=== PATIENT | female | born 1965 | race Caucasian/White ===

== ENCOUNTER 2020-01-07 17:01 | Emergency (ER) | payer OTHER, SELFPAY ==
[2020-01-07 17:15] VITALS: BP 133/62; PULSE 74; RESP 18; TEMP 37.2; O2SAT 100
--- NOTE | 2020-01-07 17:32 | ED.GENADULT ---
HPI - General Adult General Chief complaint: Skin/Abscess/Foreign Body Stated complaint: animal bite Time Seen by Provider: 01/07/20 17:32 Source: patient Mode of arrival: ambulatory Limitations: no limitations History of Present Illness HPI narrative: 54-year-old female patient presents to the [facility] with complaints of an animal bite to the right forearm. Patient states that she recently has about a 7-month-old kitten that did bite her last night. Patient states that the kitten has not had any shots that she is aware of. Patient states that she is concerned about possible rabies. Patient denies history of diabetes or being immune compromised. Patient states that she did wash it with some soap and water last night and covered it with a wet towel. Denies taking anything for pain. Patient states her last tetanus shot was about 3 years ago. Patient states she does have a little bit of joint pain to the right thumb. Related Data Home Medications Medication Instructions Recorded Confirmed lorazepam [Ativan] 0.5 mg PO BID 01/07/20 01/07/20 Allergies Allergy/AdvReac Type Severity Reaction Status Date / Time guaifenesin AdvReac Intermediate Palpitation Verified 01/07/20 17:25 s Review of Systems Review of Systems: Narrative: CONSTITUTIONAL: Denies fever, chills, or sweats. EYES: Denies visual changes, redness, or discharge. ENT: Denies rhinorrhea, congestion, sore throat, or otalgia. CARDIOVASCULAR: Denies chest pain, palpitations, or edema. RESPIRATORY: Denies cough or dyspnea. GASTROINTESTINAL: Denies abdominal pain, nausea, vomiting, or diarrhea. GENITOURINARY: Denies dysuria or hematuria. SKIN: Denies rash or itching. Positive animal bite to right forearm MUSCULOSKELETAL: Denies back pain, joint pain, or myalgia. NEUROLOGIC: Denies headache, numbness, or weakness. PSYCHIATRIC: Denies anxiety or depression. PMFSH Social History Social History Gender identity (if verbalized by the patient): Female Comments At the time of my signature I agree with nursing past medical history, surgical, social, and family history. There is no relevant family history pertinent to the presenting complaint. Exam Narrative: Exam Narrative: GENERAL: Well-appearing, well-nourished, and in no acute distress. HEAD: Normocephalic, atraumatic. EYES: PERRLA and EOMI. ENT: Nares clear, no rhinorrhea or epistaxis. Mucous membranes moist. NECK: Supple. No lymphadenopathy CHEST: Clear to auscultation. No respiratory distress. HEART: Regular rate and rhythm. No murmur heard. Normal peripheral pulses. ABDOMEN: Soft, nontender, nondistended, normal active bowel sounds. EXTREMITIES: Normal range of motion. No edema. SKIN: Warm, dry, no rash. Patient has 2 small puncture wounds noted to the posterior side of the right forearm. There is no discharge noted. No redness or surrounding swelling. No warmth to the touch noted at this time. NEURO: No focal deficits. Alert and oriented x3. Course Vital Signs Vital signs: Vital Signs Temperature 37.2 C 01/07/20 17:15 Pulse Rate 74 01/07/20 17:15 Respiratory Rate 18 01/07/20 17:15 Blood Pressure 133/62 01/07/20 17:15 Pulse Oximetry 100 01/07/20 17:15 Temperature 37.2 C 01/07/20 17:15 Pulse Rate 74 01/07/20 17:15 Respiratory Rate 18 01/07/20 17:15 Blood Pressure 133/62 01/07/20 17:15 Pulse Oximetry 100 01/07/20 17:15 Vital signs reviewed. The patient has been informed that they may have pre-hypertension or Hypertension based on a BP reading in the department. I recommend that the patient call the primary care provider listed on their discharge instructions or a physician of their choice this week to arrange follow up for further evaluation of possible pre-hypertension or Hypertension Medical Decision Making Differential Diagnosis Differential Diagnosis: Differential diagnosis: Abscess, cellulitis, hidr
== END 2020-01-07 17:53 | disposition home or self-care (01) ==
PROVIDERS: Emergency Provider Nurse Practitioner Family
DX: S51.831A Puncture wound without foreign body of right forearm, initial encounter (principal); W55.01XA Bitten by cat, initial encounter; G35 Multiple sclerosis
CPT/HCPCS: 99213; G0463

== ENCOUNTER 2020-06-13 11:09 | Emergency (ER) | payer OTHER, SELFPAY ==
[2020-06-13 11:21] VITALS: BP 131/54; PULSE 79; RESP 16; TEMP 37.2; O2SAT 99
--- NOTE | 2020-06-13 11:35 | ED.EAR ---
HPI - Ear Problem General Chief complaint: Ear Stated complaint: (R) ear pain Time Seen by Provider: 06/13/20 11:27 Source: patient and RN notes reviewed Mode of arrival: ambulatory Limitations: no limitations History of Present Illness HPI Narrative: Patient presents today with a 2-day history of right ear pain and full feeling. She also reports some drainage from her right ear. She does have history of seasonal allergies for which she takes Piper. She has been taking Tylenol without relief. Currently rates her pain 05/06. MD Complaint: ear pain Related Data Home Medications Medication Instructions Recorded Confirmed lorazepam [Ativan] 0.5 mg PO BID 06/13/20 06/13/20 Allergies Allergy/AdvReac Type Severity Reaction Status Date / Time guaifenesin AdvReac Intermediate Palpitation Verified 06/13/20 11:29 s Review of Systems Review of Systems: Narrative: CONSTITUTIONAL: Denies body aches, fever, chills, or sweats. EYES: Denies visual changes, redness, or discharge. ENT: Denies rhinorrhea, congestion, sore throat. + Right ear pain CARDIOVASCULAR: Denies chest pain, palpitations, or edema. RESPIRATORY: Denies cough or dyspnea. GASTROINTESTINAL: Denies abdominal pain, nausea, vomiting, or diarrhea. GENITOURINARY: Denies dysuria or hematuria. SKIN: Denies rash, itching, or wounds. MUSCULOSKELETAL: Denies back pain, joint pain, or myalgia. NEUROLOGIC: Denies headache, numbness, tingling, or weakness. PSYCH: Denies depression or anxiety. [facility] Social History Social History Gender identity (if verbalized by the patient): Female Comments At time of signature, I have reviewed and agree with nursing past medical, surgical, social and family history unless otherwise noted. Please see nursing chart for further information. There is no relevant family history pertinent to the presenting complaint Exam Narrative: Exam Narrative: GENERAL: Well-appearing, well-nourished, and in no acute distress. HEAD: Normocephalic, atraumatic. EYES: EOMI. No redness or drainage. Conjunctivae normal. ENT: Mucous membranes pink and moist. Nares clear. No rhinorrhea. Small amount of clear fluid behind either TM without evidence of infection. Throat normal. Uvula midline. NECK: Normal AROM. Supple. No lymphadenopathy. CHEST: No respiratory distress. EXTREMITIES: Normal range of motion. No edema. SKIN: Warm, dry, no rash. Capillary refill normal. Normal skin turgor. NEURO: No focal deficits. Alert and oriented x3. Gait steady. PSYCH: Normal affect. No signs of depression or anxiety. Course Vital Signs Vital signs: Vital Signs Temperature 99.0 F 06/13/20 11:21 Pulse Rate 79 06/13/20 11:21 Respiratory Rate 16 06/13/20 11:21 Blood Pressure 131/54 L 06/13/20 11:21 Pulse Oximetry 99 06/13/20 11:21 Temperature 99.0 F 06/13/20 11:21 Pulse Rate 79 06/13/20 11:21 Respiratory Rate 16 06/13/20 11:21 Blood Pressure 131/54 L 06/13/20 11:21 Pulse Oximetry 99 06/13/20 11:21 Reviewed. Pt has been instructed to follow up with her PCP regarding her elevated blood pressure today. Medical Decision Making Differential Diagnosis Differential Diagnosis: Otitis media, otitis externa, ruptured TM, serous otitis, eustachian tube dysfunction, cerumen impaction Vital Signs Vital Signs: Vital Signs Temperature 99.0 F 06/13/20 11:21 Pulse Rate 79 06/13/20 11:21 Respiratory Rate 16 06/13/20 11:21 Blood Pressure 131/54 L 06/13/20 11:21 Pulse Oximetry 99 06/13/20 11:21 Temperature 99.0 F 06/13/20 11:21 Pulse Rate 79 06/13/20 11:21 Respiratory Rate 16 06/13/20 11:21 Blood Pressure 131/54 L 06/13/20 11:21 Pulse Oximetry 99 06/13/20 11:21 Critical Care Time Critical Care Time Critical Care Time: No Discharge Plan Discharge Clinical Impression: Acute effusion of both middle ears Patient Disposition: Home, Se
== END 2020-06-13 11:38 | disposition home or self-care (01) ==
PROVIDERS: Emergency Provider Nurse Practitioner; PCP Physician Assistant
DX: H65.193 Other acute nonsuppurative otitis media, bilateral (principal); G35 Multiple sclerosis
CPT/HCPCS: 99211; G0463

== ENCOUNTER 2021-04-27 14:50 | Emergency (ER) | payer OTHER, SELFPAY ==
[2021-04-27 15:02] VITALS: BP 141/62; PULSE 69; RESP 18; TEMP 36.4; O2SAT 100
--- NOTE | 2021-04-27 15:18 | ED.GENADULT ---
HPI - General Adult General Chief complaint: Ear Stated complaint: Right face Pain Time Seen by Provider: 04/27/21 15:05 Source: patient and RN notes reviewed Mode of arrival: ambulatory Limitations: no limitations History of Present Illness HPI narrative: 56-year-old female presents to the [facility] with complaints of right-sided face and ear pain. States this been going on for over a week. No treatment prior to arrival. Patient states the pain radiates from the inside of her ear. Denies any significant past medical history of aside anxiety. No trauma. No sinus issues. No chest pain or shortness of breath. No abdominal pain. Related Data Home Medications Medication Instructions Recorded Confirmed lorazepam [Ativan] 0.5 mg PO BID 06/13/20 04/27/21 Allergies Allergy/AdvReac Type Severity Reaction Status Date / Time guaifenesin AdvReac Intermediate Palpitation Verified 04/27/21 15:41 s Review of Systems Review of Systems: All systems reviewed & are unremarkable except as noted in HPI and below Constitutional: Constitutional: Reports no additional constitutional complaints, Denies chills and Denies fever(s) Eyes: Eyes: Reports no additional eye complaints, Denies change in vision and Denies photophobia ENT: Reports as per HPI Comments: Right ear pain radiating into her cheek and jaw Cardiovascular: Cardiovascular: Reports no additional cardiovascular complaints, Denies chest pain and Denies radiating jaw, neck or arm pain Respiratory: Respiratory: Reports no additional respiratory complaints, Denies cough and Denies dyspnea Gastrointestinal: Gastrointestinal: Reports no additional gastrointestinal complaints, Denies abdominal pain, Denies nausea and Denies vomiting Musculoskeletal: Musculoskeletal: Reports no additional musculoskeletal complaints, Denies back pain, Denies joint swelling and Denies muscle cramps Integumentary/Breasts: Skin/Breast: Reports system reviewed and no additional complaints, except as docu, Denies erythema and Denies rash Neurologic: Reports system reviewed and no additional complaints, except as documented, Denies vertigo, Denies dizziness, Denies syncope, Denies headache(s), Denies focal weakness, Denies numbness and Denies weakness Psychiatric: Psychiatric: Reports no additional psychiatric complaints Allergic/Immunologic: Allergic/Immunologic: Reports no additional allergic/immunologic complaints, Denies lip swelling, Denies throat swelling, Denies tongue swelling and Denies wheezing PMFSH Social History Social History Gender identity (if verbalized by the patient): Female Comments At the time of my signature, I reviewed and agree with the nursing past medical, surgical, social, and family history. There is no relevant family history pertinent to the patient complaint. Exam Const: General: healthy appearing, no acute distress and alert Nutritional Appearance: well nourished and thin Orientation/consciousness: patient oriented x3 Limitations: no limitations HENMT: Head: normal to inspection, atraumatic and no abrasions Ears: external ears normal, TM normal on the left, EAC's normal, mastoids normal, no periauricular adenopathy and TM abnormal wth effusion (Right side only) serous; not erythematous General nose exam: Normal external nose present, Normal nares present, Normal nasal mucous membranes and turbinates present, No nasal discharge present and Abnormal external nose present Face and sinus: normal facial exam Mouth: Yes Normal oral and palatal mucosa present, Yes lip normal, Yes tongue normal and Yes moist mucous membranes Throat: posterior oropharynx normal Eyes: Conjunctivae: conjunctivae normal Pupils: Equal, round and reactive pupils present Neck: Other: Thyroid enlargement noted. Encourage patient to follow-up with primary care provider as soon as possible for further evaluation. Patient denies ever having any ty
== END 2021-04-27 15:40 | disposition home or self-care (01) ==
PROVIDERS: Emergency Provider Nurse Practitioner
DX: H92.01 Otalgia, right ear (principal); E04.9 Nontoxic goiter, unspecified; G35 Multiple sclerosis; F41.9 Anxiety disorder, unspecified
CPT/HCPCS: 99213; G0463

== ENCOUNTER 2021-08-02 13:12 | Emergency (ER) | payer OTHER, SELFPAY ==
[2021-08-02 13:21] VITALS: BP 113/55; PULSE 84; RESP 16; TEMP 36.4; O2SAT 100
--- NOTE | 2021-08-02 14:40 | ED.URI ---
HPI - URI/Sore Throat General Chief Complaint: Ear Stated Complaint: ear pain Time Seen by Provider: 08/02/21 14:03 Source: patient Mode of arrival: ambulatory Limitations: no limitations History of Present Illness HPI Narrative: Patient is a 56 year old female who presents with complaints of ear pain, cough, sore throat, congestion and body aches x 4-5 days, she reports having symptoms approximately 10-12 days ago but they resolved and returned. History of sinusitis. 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 Patient denies significant medical history. Patient denies taking over the counter medications for relief. MD elicited complaint: cough, nasal congestion and sinus pain Related Data Home Medications Medication Instructions Recorded Confirmed lorazepam [Ativan] 0.5 mg PO BID 06/13/20 04/27/21 Allergies Allergy/AdvReac Type Severity Reaction Status Date / Time guaifenesin AdvReac Intermediate Palpitation Verified 04/27/21 15:41 s Review of Systems Review of Systems: CONSTITUTIONAL: Denies fever, chills, or sweats. EYES: Denies visual changes, redness, or discharge. ENT: Reports congestion, sore throat and otalgia. CARDIOVASCULAR: Denies chest pain, palpitations, or edema. RESPIRATORY: Reports cough, denies dyspnea GASTROINTESTINAL: Denies abdominal pain, nausea, vomiting, or diarrhea. GENITOURINARY: Denies dysuria or hematuria. SKIN: Denies rash or itching. MUSCULOSKELETAL: Denies back pain, joint pain, or myalgia. NEUROLOGIC: Denies headache, numbness, dizziness, or weakness. PSYCHIATRIC: Denies anxiety or depression. [facility] Past Medical History Medical History Anxiety Bronchitis Chronic sinusitis Depression History of dental problems Multiple sclerosis Ovarian cyst Postmenopausal Seasonal allergies Surgical History Surgical History H/O dilation and curettage H/O: Social History Social History (Updated 08/02/21 @ 14:49 by RENNY Goldstein) Smoking status: Current some day smoker Alcohol intake: never Substance use: never Living arrangements: with family Gender identity (if verbalized by the patient): Female Course Vital Signs Vital signs: Vital Signs Temperature 36.4 C 08/02/21 13:21 Pulse Rate 84 08/02/21 13:21 Respiratory Rate 16 08/02/21 13:21 Blood Pressure 113/55 L 08/02/21 13:21 Pulse Oximetry 100 08/02/21 13:21 Temperature 36.4 C 08/02/21 13:21 Pulse Rate 84 08/02/21 13:21 Respiratory Rate 16 08/02/21 13:21 Blood Pressure 113/55 L 08/02/21 13:21 Pulse Oximetry 100 08/02/21 13:21 MDM - URI/Sore Throat MDM Narrative Medical decision making narrative: Patient most likely has sinusitis. Patient to be treated with Augmentin at this time. Rapid Covid testing negative. Patient declines PCR. Patient is stable for discharge home with outpatient follow-up as needed. Differential Diagnosis Differential diagnosis: Likely upper respiratory infection, sinusitis, viral infection and pharyngitis Medical Records Attestation: I reviewed the patient's medical records. Lab Data Attestation: I reviewed the patient's lab results. Labs: Lab Results 08/02/21 Range/Units 14:00 POC SARS CoV-2 Ag Negative (Negative) Critical Care Time Critical Care Time Critical Care Time: No Discharge Plan Discharge Clinical Impression: Sinusitis Patient Disposition: Home, Self-Care Condition: Stable Instructions: Antibiotic Form, Sinusitis (ED) Prescriptions: New amoxicillin-pot clavulanate 875-125 mg tablet 1 tablet PO Q12H 7 Days Qty: 14 RF: 0 No Action fluticasone propionate [Flonase Allergy Relief] 50 mcg/actuation spray,suspension 1 spray intranasal BID Qty: 16 RF: 0 lorazepam [Ativan] 0.5 mg Tablet 0.5 mg PO BID RF: 0 Follow-up/Referrals: Aneudy,Maria Eugenia
== END 2021-08-02 14:55 | disposition home or self-care (01) ==
PROVIDERS: Emergency Provider Nurse Practitioner; PCP Physician Assistant
DX: J32.9 Chronic sinusitis, unspecified (principal); Z20.822 Contact with and (suspected) exposure to COVID-19; G35 Multiple sclerosis; F17.200 Nicotine dependence, unspecified, uncomplicated; F41.9 Anxiety disorder, unspecified; F32.A Depression, unspecified
CPT/HCPCS: 87426; 99213; C9803; G0463

== ENCOUNTER 2021-11-17 14:44 | Emergency (ER) | payer OTHER, SELFPAY ==
[2021-11-17 14:57] VITALS: BP 138/63; PULSE 77; RESP 18; TEMP 36.8; O2SAT 100
--- NOTE | 2021-11-17 15:32 | ED.EAR ---
HPI - Ear Problem General Chief complaint: Ear Stated complaint: ear pain Time Seen by Provider: 11/17/21 15:22 Source: patient and RN notes reviewed Mode of arrival: ambulatory Limitations: no limitations History of Present Illness HPI Narrative: Patient presents today complaining of right ear pain and ringing x10 days. Denies drainage. She currently rates her pain 8/10 and has tried some Tylenol without relief. Denies any additional symptoms. MD Complaint: ear pain Related Data Home Medications Medication Instructions Recorded Confirmed lorazepam 0.5 mg PO DIRECTED 11/17/21 11/17/21 ondansetron 4 mg PO DIRECTED 11/17/21 11/17/21 Allergies Allergy/AdvReac Type Severity Reaction Status Date / Time guaifenesin AdvReac Intermediate Palpitation Verified 11/17/21 14:47 s Review of Systems Review of Systems: CONSTITUTIONAL: Denies body aches, fever, chills, or sweats. EYES: Denies visual changes, redness, or discharge. ENT: Denies rhinorrhea, congestion, sore throat. + Right ear pain CARDIOVASCULAR: Denies chest pain, palpitations, or edema. RESPIRATORY: Denies cough or dyspnea. GASTROINTESTINAL: Denies abdominal pain, nausea, vomiting, or diarrhea. GENITOURINARY: Denies dysuria or hematuria. SKIN: Denies rash, itching, or wounds. MUSCULOSKELETAL: Denies back pain, joint pain, or myalgia. NEUROLOGIC: Denies headache, numbness, tingling, or weakness. PSYCH: Denies depression or anxiety. [facility] Past Medical History Medical History Anxiety Bronchitis Chronic sinusitis Depression History of dental problems Multiple sclerosis Ovarian cyst Postmenopausal Seasonal allergies Surgical History Surgical History H/O dilation and curettage H/O: Social History Social History Smoking status: Current some day smoker Alcohol intake: never Substance use: never Gender identity (if verbalized by the patient): Female Comments At time of signature, I have reviewed and agree with nursing past medical, surgical, social and family history unless otherwise noted. Please see nursing chart for further information. There is no relevant family history pertinent to the presenting complaint Exam Narrative: GENERAL: Well-appearing, well-nourished, and in no acute distress. HEAD: Normocephalic, atraumatic. EYES: EOMI. No redness or drainage. Conjunctivae normal. ENT: Mucous membranes pink and moist. Nares clear. No rhinorrhea. Right TM with mild serous effusion without evidence of infection. Left TM normal. Throat normal. Uvula midline. NECK: Normal AROM. Supple. No lymphadenopathy. CHEST: No respiratory distress. EXTREMITIES: Normal range of motion. No edema. SKIN: Warm, dry, no rash. Capillary refill normal. Normal skin turgor. NEURO: No focal deficits. Alert and oriented x3. Gait steady. PSYCH: Normal affect. No signs of depression or anxiety. Course Course Level of Care: Express Care Visit Vital Signs Vital signs: Vital Signs Temperature 98.2 F 11/17/21 14:57 Pulse Rate 77 11/17/21 14:57 Respiratory Rate 18 11/17/21 14:57 Blood Pressure 138/63 11/17/21 14:57 Pulse Oximetry 100 11/17/21 14:57 Temperature 98.2 F 11/17/21 14:57 Pulse Rate 77 11/17/21 14:57 Respiratory Rate 18 11/17/21 14:57 Blood Pressure 138/63 11/17/21 14:57 Pulse Oximetry 100 11/17/21 14:57 Reviewed. Pt has been instructed to follow up with his PCP regarding his elevated blood pressure today. Medical Decision Making Differential Diagnosis Differential Diagnosis: Otitis media, otitis externa, ruptured TM, serous otitis, eustachian tube dysfunction, cerumen impaction Vital Signs Vital Signs: Vital Signs Temperature 98.2 F 11/17/21 14:57 Pulse Rate 77 11/17/21 14:57 Respiratory Rate 18
== END 2021-11-17 15:35 | disposition home or self-care (01) ==
PROVIDERS: Emergency Provider Nurse Practitioner; PCP Physician Assistant
DX: H65.01 Acute serous otitis media, right ear (principal); F17.200 Nicotine dependence, unspecified, uncomplicated; G35 Multiple sclerosis; F41.9 Anxiety disorder, unspecified
CPT/HCPCS: 99211; G0463

== ENCOUNTER 2022-07-08 11:28 | Emergency (ER) | payer OTHER, SELFPAY ==
--- NOTE | ~2022-07-08 | XR_ITS ---
XR forearm RT 2V DATE: 07/08/2022 12:32 INDICATION: Generalized right forearm pain following straining yesterday TECHNIQUE: AP and lateral views COMPARISON: 10/30/2015 right wrist FINDINGS: Prominent cystic change of the lunate bone is again noted. There is possible subtle patholo gic fracture of the lunate bone. No fracture or dislocation of the radius or ulna. Normal alignment at the elbow and wrist joints. 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
[2022-07-08 11:39] VITALS: BP 132/65; PULSE 73; RESP 16; TEMP 36.9; O2SAT 99
--- NOTE | 2022-07-08 12:17 | ED.UPPEXIN ---
HPI - Extremity Injury (Upper) General Chief Complaint: Extremity Injury, Upper Stated Complaint: right wrist pain Time Seen by Provider: 07/08/22 12:17 Source: patient, RN notes reviewed and old records reviewed Mode of arrival: ambulatory Limitations: no limitations History of Present Illness HPI narrative: 57-year-old female presents to the [facility] with generalized right forearm pain. Worst pain is the distal ulnar. No treatment prior to arrival. Patient states that she was helping her ill sister last night when she thinks she hyperextended and was hit in the wrist. No snuffbox tenderness. Pain with any movement of the wrist. Most comfort when Flat. MD complaint: injury to: right and forearm Related Data Home Medications Medication Instructions Recorded Confirmed lorazepam 0.5 mg tablet 0.5 mg PO DAILY 11/17/21 07/08/22 amoxicillin 875 mg-potassium 1 tablet PO BID 07/08/22 07/08/22 clavulanate 125 mg tablet ergocalciferol (vitamin D2) 1,250 1,250 mcg PO WEEKLY 07/08/22 07/08/22 mcg (50,000 unit) capsule fluticasone propionate 50 1 spray intranasal DAILY 07/08/22 07/08/22 mcg/actuation nasal spray,suspension ibuprofen 800 mg tablet 800 mg PO DAILY 07/08/22 07/08/22 Allergies Allergy/AdvReac Type Severity Reaction Status Date / Time guaifenesin AdvReac Intermediate Palpitation Verified 07/08/22 11:50 s Review of Systems Review of Systems: All systems reviewed & are unremarkable except as noted in HPI and below Constitutional: Constitutional: Reports no additional constitutional complaints, Denies chills and Denies fever(s) Eyes: Eyes: Reports no additional eye complaints ENT: Reports system reviewed and no additional complaints, except as documented Cardiovascular: Cardiovascular: Reports no additional cardiovascular complaints Respiratory: Respiratory: Reports no additional respiratory complaints Gastrointestinal: Gastrointestinal: Reports no additional gastrointestinal complaints Musculoskeletal: Musculoskeletal: Reports as per HPI Integumentary/Breasts: Skin/Breast: Reports system reviewed and no additional complaints, except as docu Neurologic: Reports system reviewed and no additional complaints, except as documented Psychiatric: Psychiatric: Reports no additional psychiatric complaints Allergic/Immunologic: Allergic/Immunologic: Reports no additional allergic/immunologic complaints PMFSH Past Medical History Medical History Anxiety Bronchitis Chronic sinusitis Depression History of dental problems Multiple sclerosis Ovarian cyst Postmenopausal Seasonal allergies Surgical History Surgical History H/O dilation and curettage H/O: Social History Social History Smoking status: Current some day smoker Alcohol intake: never Substance use: never Gender identity (if verbalized by the patient): Female Comments At the time of my signature, I reviewed and agree with the nursing past medical, surgical, social, and family history. There is no relevant family history pertinent to the patient complaint. Exam Const: General: healthy appearing, no acute distress and alert Nutritional Appearance: well nourished Orientation/consciousness: patient oriented x3 Limitations: no limitations HENMT: Head: normal to inspection Ears: external ears normal Eyes: General: appearance normal, both eyes and all related structures Pupils: Equal, round and reactive pupils present Neck: Neck: normal visual inspection, no lymphadenopathy and no meningeal signs Chest: Chest palpation & inspection: normal inspection of the chest Resp: Effort & Inspection: normal respiratory effort and no use of accessory muscles Auscultation: clear to auscultation bilaterally, no crackles, no rales, no rhonchi and no wheezes
== END 2022-07-08 13:38 | disposition home or self-care (01) ==
PROVIDERS: Emergency Provider Nurse Practitioner; PCP Physician Assistant
DX: S62.121A Displaced fracture of lunate [semilunar], right wrist, initial encounter for closed fracture (principal); X50.9XXA Other and unspecified overexertion or strenuous movements or postures, initial encounter; S50.11XA Contusion of right forearm, initial encounter; M85.441 Solitary bone cyst, right hand; F17.200 Nicotine dependence, unspecified, uncomplicated; G35 Multiple sclerosis; F41.9 Anxiety disorder, unspecified
CPT/HCPCS: 29125; 73090; 99213; A4565; G0463

== ENCOUNTER → 2022-07-09 13:53 | Outpatient (CLI) | payer OTHER, SELFPAY ==
--- NOTE | ~2022-07-09 | XR_ITS ---
EXAMINATION: XR wrist RT min 3V DATE: 07/09/2022 14:10 INDICATION: Pathologic fracture of the right lunate TECHNIQUE: Posteroanterior, oblique, and lateral views of the right wrist were obtained. COMPARISON: 10/30/2015 FINDINGS: Fiberglas splinting along the volar aspect of the right wrist which limits fine bone and soft tissue detail on the dorsal palmar projection. Chronic central lytic lesion of the lunate with surrounding s clerosis which was present at the time of the prior study. A clearly defined fracture line is unable to be identified. There Is a small lucent focus projecting across the ulnar sided cortex of the lunat e potentially representing a nondisplaced fracture. No other lesions suspicious for fracture identifi ed. Mild osteoarthritis at the radial lunate articulation of the wrist joint as well as at the midcar pal and triscaphe joints. Moderate osteoarthritis at the first carpometacarpal joint. IMPRESSION: 1. Chronic centrally lytic, peripherally sclerotic lesion at the lunate which could represent chronic osteonecrosis. Small focus of lucency projecting along the ulnar sided cortex of the lunate potentia lly representing a portion of the otherwise in discernible fracture plane. Could consider CT for more definitive determination. 2. Articular osteoarthritis, moderate at the triscaphe joint and mild at a few of the joints at the r ight wrist and carpus.. Reviewed, dictated and finalized at location A. IMPRESSION: 1. Chronic centrally lytic, peripherally sclerotic lesion at the lunate which c ould represent chronic osteonecrosis. Small focus of lucency projecting along t he ulnar sided cortex of the lunate potentially representing a portion of the o therwise in discernible fracture plane. Could consider CT for more definitive d etermination. 2. Articular osteoarthritis, moderate at the triscaphe joint and mild at a few of the joints at the right wrist and carpus..
== END ==
PROVIDERS: PCP Plastic Surgery; Visit Provider Plastic Surgery
DX: S62.121A Displaced fracture of lunate [semilunar], right wrist, initial encounter for closed fracture (principal); X58.XXXA Exposure to other specified factors, initial encounter; M19.031 Primary osteoarthritis, right wrist
CPT/HCPCS: 73110

== ENCOUNTER 2022-07-22 12:10 | Emergency (ER) | payer OTHER, SELFPAY ==
--- NOTE | ~2022-07-22 | XR_ITS ---
[XR ribs LT 2V ] INDICATION: Left upper rib pain after recent fall TECHNIQUE: Frontal projection of the upper left ribs, frontal projection of the lower left ribs, obli que projection of all the left ribs, frontal inspiratory chest x-ray for interpretation. FINDINGS: There are no displaced rib fractures identified. There are no soft tissue abnormality see n. The lungs are clear. IMPRESSION: 1:No acute displaced rib fractures. Reviewed, dictated and finalized at location A.
[2022-07-22 12:24] VITALS: BP 126/58; PULSE 73; RESP 16; TEMP 36.9; O2SAT 100
--- NOTE | 2022-07-22 12:42 | ED.GENADULT ---
HPI - General Adult General Chief complaint: Fall Stated complaint: cp Time Seen by Provider: 07/22/22 12:49 Source: patient and RN notes reviewed Mode of arrival: ambulatory Limitations: no limitations History of Present Illness HPI narrative: 57-year-old female presents to the [facility] with complaints of left rib pain after tripping and falling onto her name tag pushing into her left upper chest area last Saturday Denies any chest pain. Denies any shortness of breath. No nausea or vomiting. Area is tender to palpation. No bruising or swelling noted. Has full range of motion of the shoulder. States that she called in sick to work due to her not feeling well and needs a work note for today, wants to return tomorrow Related Data Home Medications Medication Instructions Recorded Confirmed lorazepam 0.5 mg tablet 0.5 mg PO DAILY 11/17/21 07/22/22 ergocalciferol (vitamin D2) 1,250 1,250 mcg PO WEEKLY 07/08/22 07/22/22 mcg (50,000 unit) capsule fluticasone propionate 50 1 spray intranasal DAILY 07/08/22 07/22/22 mcg/actuation nasal spray,suspension ibuprofen 800 mg tablet 800 mg PO DAILY 07/08/22 07/22/22 Allergies Allergy/AdvReac Type Severity Reaction Status Date / Time guaifenesin AdvReac Intermediate Palpitation Verified 07/22/22 12:23 s Review of Systems Review of Systems: All systems reviewed & are unremarkable except as noted in HPI and below Constitutional: Constitutional: Reports no additional constitutional complaints, Denies chills and Denies fever(s) Eyes: Eyes: Reports no additional eye complaints ENT: Reports system reviewed and no additional complaints, except as documented Cardiovascular: Cardiovascular: Reports as per HPI and Denies chest pain Respiratory: Respiratory: Reports no additional respiratory complaints Gastrointestinal: Gastrointestinal: Reports no additional gastrointestinal complaints Musculoskeletal: Musculoskeletal: Reports no additional musculoskeletal complaints and Reports arthralgias (Right proximal knee) Integumentary/Breasts: Skin/Breast: Reports system reviewed and no additional complaints, except as docu Neurologic: Reports system reviewed and no additional complaints, except as documented Psychiatric: Psychiatric: Reports no additional psychiatric complaints Allergic/Immunologic: Allergic/Immunologic: Reports no additional allergic/immunologic complaints PMFSH Past Medical History Medical History Anxiety Bronchitis Chronic sinusitis Depression History of dental problems Multiple sclerosis Ovarian cyst Postmenopausal Seasonal allergies Surgical History Surgical History H/O dilation and curettage H/O: Social History Social History Smoking status: Current some day smoker Alcohol intake: never Substance use: never Gender identity (if verbalized by the patient): Female Comments At the time of my signature, I reviewed and agree with the nursing past medical, surgical, social, and family history. There is no relevant family history pertinent to the patient complaint. Exam Const: General: healthy appearing, no acute distress and alert Nutritional Appearance: well nourished and thin Orientation/consciousness: patient oriented x3 Limitations: no limitations HENMT: Head: normal to inspection Ears: external ears normal General nose exam: Normal external nose present Eyes: General: appearance normal, both eyes and all related structures Pupils: Equal, round and reactive pupils present Neck: Neck: normal visual inspection, no lymphadenopathy and no meningeal signs Chest: Chest palpation & inspection: normal inspection of the chest, no masses, tenderness rib (Left upper ), No Pacemaker present and No rash Resp: Effort & Inspection: normal respiratory effort and
== END 2022-07-22 13:02 | disposition home or self-care (01) ==
PROVIDERS: Emergency Provider Nurse Practitioner
DX: S20.212A Contusion of left front wall of thorax, initial encounter (principal); S80.01XA Contusion of right knee, initial encounter; W01.0XXA Fall on same level from slipping, tripping and stumbling without subsequent striking against object, initial encounter; F41.9 Anxiety disorder, unspecified; G35 Multiple sclerosis; F17.200 Nicotine dependence, unspecified, uncomplicated
CPT/HCPCS: 71100; 99213; G0463

== ENCOUNTER 2022-07-31 10:17 | Outpatient (CLI) | payer OTHER, SELFPAY ==
--- NOTE | ~2022-07-31 | CT_ITS ---
EXAMINATION: CT wrist RT w con DATE: 07/31/2022 11:19 INDICATION: Osteonecrosis of the right lunate TECHNIQUE: High resolution computed tomography (CT) of the right wrist was performed without intraven ous contrast. Additional sagittal and coronal reconstructions were performed. Automated exposure cont rol and iterative reconstruction technique were employed. The dose-length product was 299.93 mGy-cm. COMPARISON: Right wrist radiographs dated 07/09/2022 and 10/30/2015 FINDINGS: Again seen is centrally lytic, peripherally sclerotic appearance to the lunate. There is comminuted i ntra-articular fracture of the lunate extending to the proximal and distal articular surfaces with le ss than 2 mm maximal fracture gap or incongruity at any of the fracture lines. There is some impactio n of the lunate with loss of proximal to distal height of the radial side of the lunate. Appearance m ost consistent with osteonecrosis with secondary fragmentation. Bone alignment remains essentially an atomic. No other fractures identified. Mild polyarticular osteoarthritis at the wrist, triscaphe and first carpal metacarpal joints. There is secondary subarticular cystic change at the ulnar side of th e distal pole of the scaphoid. Tiny chronic ossicle near the tip of the ulnar styloid process which c ould represent either degenerative loose body or heterotopic ossicle related to chronic soft tissue i njury in the region of the triangular fibrocartilage complex. IMPRESSION: 1. 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 2. Mild polyarticular osteoarthritis at the right wrist and carpus. Reviewed, dictated and finalized at location A. IMPRESSION: 1. 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 2. Mild polyarticular osteoarthritis at the right wrist and carpus.
== END 2022-07-31 10:18 | disposition home or self-care (01) ==
PROVIDERS: PCP Physician Assistant; Visit Provider Plastic Surgery
DX: M87.237 Osteonecrosis due to previous trauma of right carpus (principal); M19.031 Primary osteoarthritis, right wrist
CPT/HCPCS: 73201; Q9967

== ENCOUNTER 2022-10-02 12:43 | Outpatient (CLI) | payer OTHER, SELFPAY ==
--- NOTE | ~2022-10-02 | US_ITS ---
US thyroid INDICATION: Thyroid goiter TECHNIQUE: Real-time sonographic images of the thyroid gland were obtained. COMPARISON: No prior studies for comparison. FINDINGS: The right thyroid lobe measures 6.7 x 3.8 x 2.8 cm. The left thyroid lobe measures 7 x 3.1 x 3.3 cm. There is normal echotexture and echogenicity throughout the thyroid gland. No discrete nod ules identified. Normal vascular flow is present. IMPRESSION: 1. Enlarged heterogeneous thyroid gland without discrete mass. Reviewed, dictated and finalized at location A. MANAGER
== END 2022-10-02 12:44 | disposition home or self-care (01) ==
PROVIDERS: PCP Internal Medicine Gastroenterology; Visit Provider Internal Medicine Gastroenterology
DX: E04.9 Nontoxic goiter, unspecified (principal)
CPT/HCPCS: 76536

== ENCOUNTER 2022-10-19 13:53 | Emergency (ER) | payer OTHER, SELFPAY ==
[2022-10-19 14:08] VITALS: BP 117/55; PULSE 85; RESP 20; TEMP 36.9; O2SAT 100
--- NOTE | 2022-10-19 14:13 | ECG_ITS ---
Measurements Intervals [place] Rate: 86 P: 59 UT: 122 QRS: 56 QRSD: 113 T: 52 QT: 359 QTc: 430 Interpretive Statements SINUS RHYTHM BASELINE ARTIFACT INCOMPLETE RIGHT BUNDLE BRANCH BLOCK BORDERLINE ECG COMPARED TO ECG 03/29/2019 13:05:52 INCOMPLETE RIGHT BUNDLE-BRANCH BLOCK NOW PRESENT Electronically Signed On 10-22-2022 16:40:08 DRAFTING INSTRUCTOR by Soren Samano M.D.
[2022-10-19 14:34] LABS: Basophils Percent Auto 0.4 % (0.2-1.2); Eosinophils Percent Auto 0.2 % (0-4.4); Hematocrit 41.8 % (37.0-47.0); Hemoglobin 13.9 g/dL (12.0-15.0); Immature Granulocyte Absolute 0.02 K/mm3 (0.00-0.031); Immature Granulocyte Percent A 0.4 % (0-0.5); Lymphocytes Absolute Auto 1.71 K/mm3 (0.9-3.2); Lymphocytes Percent Auto 31.8 % (18.3-44.2); Mean Corpuscular HGB Conc 33.3 g/dl (32-36); Mean Corpuscular Hemoglobin 30.7 pg (26-34); Mean Corpuscular Volume 92.3 fl (80-100); Mean Platelet Volume 10.3 fl (7.4-10.4); Monocytes Absolute Auto 0.5 K/mm3 (0.1-0.6); Monocytes Percent Auto 8.7 % (2.6-8.5); Neutrophils Absolute Auto 3.2 K/mm3 (1.3-6.7); Neutrophils Percent Auto 58.5 % (45.5-73.1); Platelet Count Result 304 k/mm3 (150-375); Red Blood Count 4.53 M/mm3 (4.2-5.4); Red Cell Distribution Width 14.6 % (11.5-14.5); White Blood Count 5.4 K/mm3 (4.5-10.0)
[2022-10-19 14:46] LABS: Alanine Aminotransferase 22 U/L (6-35); Albumin Level 4.5 g/dL (3.5-5.1); Alkaline Phosphatase 59 U/L (38-126); Anion Gap 9 mmol/L (8-16); Aspartate Amino Transferase 45 U/L (14-36); Bilirubin,Total 0.4 mg/dL (0.2-1.3); Blood Urea Nitrogen 8 mg/dL (7-17); Calcium 8.5 mg/dL (8.4-10.2); Carbon Dioxide 27 mmol/L (22-30); Chloride 98 mmol/L (98-107); Estimated CRCL calculation 57 ml/min; Estimated Glomerular Filt Rate > 60; Glucose 120 mg/dL (65-110); Potassium 3.2 mmol/L (3.4-5.0); Sodium 134 mmol/L (137-145)
[2022-10-19 17:50] LABS: Influenza A QL RT-PCR Positive (Negative); Influenza B QL RT-PCR Negative (Negative); SARS-CoV-2 RNA PCR Negative
== END 2022-10-19 16:26 | disposition left against medical advice (07) ==
LOC: ANHED 16:30
PROVIDERS: Emergency Provider Emergency Medicine; PCP Internal Medicine Gastroenterology
DX: R55 Syncope and collapse (principal)
CPT/HCPCS: 36415; 80053; 85025; 87636; 93005; 99199

== ENCOUNTER 2022-10-22 09:24 | Emergency (ER) | payer OTHER, SELFPAY ==
[2022-10-22 09:30] VITALS: BP 116/74; PULSE 91; RESP 18; TEMP 35.9; O2SAT 100
--- NOTE | 2022-10-22 10:26 | ED.URI ---
HPI - URI/Sore Throat General Chief Complaint: Upper Respiratory Infection Stated Complaint: Cough/Dizziness/Sinus/Ears Irritation Time Seen by Provider: 10/22/22 10:27 Source: patient, RN notes reviewed and old records reviewed Mode of arrival: ambulatory Limitations: no limitations History of Present Illness HPI Narrative: 57-year-old female presents to the [facility] with complaints of cough, sinus pressure, ear irritation, and ear pain. Patient reports a syncopal episode on the where she was taken to the ER but due to family issues got up and left. Does not know her lab values. Onset (ago): day(s) (-) Related Data Home Medications Medication Instructions Recorded Confirmed lorazepam 0.5 mg tablet 0.5 mg PO DAILY 11/17/21 07/22/22 ergocalciferol (vitamin D2) 1,250 1,250 mcg PO WEEKLY 07/08/22 07/22/22 mcg (50,000 unit) capsule fluticasone propionate 50 1 spray intranasal DAILY 07/08/22 07/22/22 mcg/actuation nasal spray,suspension ibuprofen 800 mg tablet 800 mg PO DAILY 07/08/22 07/22/22 citalopram 20 mg tablet mg 10/22/22 fexofenadine 180 mg tablet mg 10/22/22 (Allergy Relief (fexofenadine)) Allergies Allergy/AdvReac Type Severity Reaction Status Date / Time guaifenesin AdvReac Intermediate Palpitation Verified 10/22/22 10:03 s Review of Systems Review of Systems: All systems reviewed & are unremarkable except as noted in HPI and below Constitutional: Constitutional: Reports as per HPI and Reports fatigue Eyes: Eyes: Reports no additional eye complaints ENT: Reports as per HPI Cardiovascular: Cardiovascular: Reports no additional cardiovascular complaints, Denies chest pain and Denies dyspnea Respiratory: Respiratory: Reports as per HPI, Denies chest congestion, Reports cough and Denies dyspnea Gastrointestinal: Gastrointestinal: Reports no additional gastrointestinal complaints, Denies abdominal pain, Denies nausea and Denies vomiting Musculoskeletal: Musculoskeletal: Reports no additional musculoskeletal complaints Integumentary/Breasts: Skin/Breast: Reports system reviewed and no additional complaints, except as docu Neurologic: Reports system reviewed and no additional complaints, except as documented Psychiatric: Psychiatric: Reports no additional psychiatric complaints Allergic/Immunologic: Allergic/Immunologic: Reports no additional allergic/immunologic complaints PMFSH Past Medical History Medical History Anxiety Bronchitis Chronic sinusitis Depression History of dental problems Multiple sclerosis Ovarian cyst Postmenopausal Seasonal allergies Surgical History Surgical History H/O dilation and curettage H/O: Social History Social History Smoking status: Current some day smoker Alcohol intake: never Substance use: never Gender identity (if verbalized by the patient): Female Comments At the time of my signature, I reviewed and agree with the nursing past medical, surgical, social, and family history. There is no relevant family history pertinent to the patient complaint. Exam Const: General: cooperative, healthy appearing, comfortable, no acute distress, well developed, alert and well nourished Nutritional Appearance: well nourished Orientation/consciousness: patient oriented x3 Limitations: no limitations HENMT: Head: normal to inspection Ears: hearing grossly normal bilaterally and external ears normal Face/Nose/Sinus: Normal external nose present, Normal nares present, Normal nasal mucous membranes and turbinates present and normal facial exam Face and sinus: normal facial exam Mouth: Yes Normal oral and palatal mucosa present, Yes lip normal and Yes moist mucous membranes Throat: posterior oropharynx normal and uvula midline Eyes: General: appearance normal, both
== END 2022-10-22 10:43 | disposition home or self-care (01) ==
PROVIDERS: Emergency Provider Nurse Practitioner; PCP Internal Medicine Gastroenterology
DX: J10.1 Influenza due to other identified influenza virus with other respiratory manifestations (principal); H65.03 Acute serous otitis media, bilateral; G35 Multiple sclerosis; F41.9 Anxiety disorder, unspecified; F32.A Depression, unspecified
CPT/HCPCS: 99213; G0463

== ENCOUNTER 2023-02-27 10:49 | Emergency (ER) | payer OTHER, SELFPAY ==
[2023-02-27 10:56] VITALS: BP 120/67; PULSE 77; RESP 16; TEMP 37; O2SAT 100
--- NOTE | 2023-02-27 11:09 | ED.ABDPAIN ---
HPI - Abdominal Pain General Stated Complaint: Abdominal Pain/Nausea Time Seen by Provider: 02/27/23 11:09 Source: patient Mode of arrival: ambulatory Limitations: no limitations History of Present Illness HPI narrative: 57-year-old female presents with complaint upset stomach, nausea, abdominal cramping since last night after eating sugar per. Patient thinks that the ice cream was or contaminated. States that it did not taste right. Vomited once after eating it. Continues to have upset stomach today and was not able to go to work. Denies diarrhea, has had normal bowel movements since eating the ice cream. Afebrile All systems reviewed and negative except as noted above. Related Data Home Medications Medication Instructions Recorded Confirmed lorazepam 0.5 mg tablet 0.5 mg PO DAILY 11/17/21 02/27/23 citalopram 20 mg tablet 20 mg PO DAILY 10/22/22 02/27/23 cholecalciferol (vitamin D3) 1,250 1,250 mcg PO WEEKLY 02/27/23 02/27/23 mcg (50,000 unit) capsule Allergies Allergy/AdvReac Type Severity Reaction Status Date / Time guaifenesin AdvReac Intermediate Palpitation Verified 02/27/23 10:58 s Review of Systems Review of Systems: CONSTITUTIONAL: Denies fever, chills, or sweats. EYES: Denies visual changes, redness, or discharge. ENT: Denies rhinorrhea, congestion, sore throat, or otalgia. CARDIOVASCULAR: Denies chest pain, palpitations, or edema. RESPIRATORY: Denies cough or dyspnea. GASTROINTESTINAL: Denies abdominal pain. Reports nausea, vomiting. Denies diarrhea. GENITOURINARY: Denies dysuria or hematuria. SKIN: Denies rash or itching. MUSCULOSKELETAL: Denies back pain, joint pain, or myalgia. NEUROLOGIC: Denies headache, numbness, or weakness. PSYCHIATRIC: Denies anxiety or depression. All other systems reviewed are negative, except as documented in HPI. [facility] Past Medical History Medical History Anxiety Bronchitis Chronic sinusitis Depression History of dental problems Multiple sclerosis Ovarian cyst Postmenopausal Seasonal allergies Surgical History Surgical History H/O dilation and curettage H/O: Social History Social History Smoking status: Current some day smoker Alcohol intake: never Substance use: never Living arrangements: with family Gender identity (if verbalized by the patient): Female Comments At time of signature, agree with nursing past medical, surgical, social and family history. There is no relevant family history pertinent to the presenting complaint. Exam Narrative: GENERAL: This is a well-nourished, well-developed patient, in no apparent distress. HEAD: normocephalic, atraumatic. EYES: PERRL. Sclera clear/white. Vision is grossly intact. EARS: External ears normal NOSE: External nose normal NECK: Neck supple, non-tender without lymphadenopathy, masses or thyromegaly. CARDIOVASCULAR: Regular rate and rhythm without murmurs, gallops, or rubs. RESPIRATORY: Clear to auscultation. Breath sounds equal bilaterally. No wheezes, rales, or rhonchi. GASTROINTESTINAL: Abdomen soft, non-tender, nondistended. Bowel sounds are active. No hepato-splenomegaly, or palpable masses. No guarding. SKIN: warm, Dry, intact with no suspicious lesions or rash, good texture and turgor. NEURO: awake, alert, and oriented to person, place and time. There were no obvious focal neurologic abnormalities. EXTREMITIES: No joint tenderness, effusion, or edema noted. Course Course Level of Care: Express Care Visit Vital Signs Vital signs: Vital Signs Temperature 37.0 C 02/27/23 10:56 Pulse Rate 77 02/27/23 10:56 Respiratory Rate 16 02/27/23 10:56 Blood Pressure 120/67 02/27/23 10:56 Pulse Oximetry 100 02/27/23 10:56 Oxygen Delivery Room Air 02/27/23 10:56 Tem
== END 2023-02-27 11:22 | disposition home or self-care (01) ==
PROVIDERS: Emergency Provider Nurse Practitioner Family; PCP Internal Medicine Gastroenterology
DX: R11.2 Nausea with vomiting, unspecified (principal); F17.200 Nicotine dependence, unspecified, uncomplicated; G35 Multiple sclerosis; F41.9 Anxiety disorder, unspecified; F32.A Depression, unspecified
CPT/HCPCS: 99213; G0463

== ENCOUNTER 2023-04-25 13:14 | Emergency (ER) | payer OTHER, SELFPAY ==
[2023-04-25 13:22] VITALS: BP 125/63; PULSE 79; RESP 20; TEMP 37; O2SAT 100
--- NOTE | 2023-04-25 14:23 | ED.URI ---
HPI - URI/Sore Throat General Chief Complaint: Upper Respiratory Infection Stated Complaint: dizziness Time Seen by Provider: 04/25/23 14:00 Source: patient and RN notes reviewed Mode of arrival: ambulatory Limitations: no limitations History of Present Illness HPI Narrative: Patient presents today complaining a sore throat, right ear pain and clogging and mild dizziness since yesterday. Denies chest pain, shortness of breath, or any additional symptoms. States she has had dizziness associated with her allergies and sinus symptoms in the past. She has been taking Tylenol with mild relief. Related Data Home Medications Medication Instructions Recorded Confirmed lorazepam 0.5 mg tablet 0.5 mg PO DAILY 11/17/21 02/27/23 cholecalciferol (vitamin D3) 1,250 1,250 mcg PO WEEKLY 02/27/23 02/27/23 mcg (50,000 unit) capsule Allergies Allergy/AdvReac Type Severity Reaction Status Date / Time guaifenesin AdvReac Intermediate Palpitation Verified 04/25/23 13:27 s Review of Systems Review of Systems: CONSTITUTIONAL: Denies body aches, fever, chills, or sweats. EYES: Denies visual changes, redness, or discharge. ENT: Denies rhinorrhea, congestion.+ right ear pain and clogging, sore throat CARDIOVASCULAR: Denies chest pain, palpitations, or edema. RESPIRATORY: Denies cough or dyspnea. GASTROINTESTINAL: Denies abdominal pain, nausea, vomiting, or diarrhea. GENITOURINARY: Denies dysuria or hematuria. SKIN: Denies rash, itching, or wounds. MUSCULOSKELETAL: Denies back pain, joint pain, or myalgia. NEUROLOGIC: Denies headache, numbness, tingling, or weakness.+ dizziness PSYCH: Denies depression or anxiety. [facility] Past Medical History Medical History Anxiety Bronchitis Chronic sinusitis Depression History of dental problems Multiple sclerosis Ovarian cyst Postmenopausal Seasonal allergies Surgical History Surgical History H/O dilation and curettage H/O: Social History Social History Smoking status: Current some day smoker Alcohol intake: never Substance use: never Living arrangements: with family Gender identity (if verbalized by the patient): Female Comments At time of signature, I have reviewed and agree with nursing past medical, surgical, social and family history unless otherwise noted. Please see nursing chart for further information. There is no relevant family history pertinent to the presenting complaint Exam Narrative: GENERAL: Well-appearing, well-nourished, and in no acute distress. HEAD: Normocephalic, atraumatic. EYES: EOMI. PERRL. No nystagmus. No redness or drainage. Conjunctivae normal. ENT: Mucous membranes pink and moist. Nares clear. No rhinorrhea. TMs normal bilaterally with mild right-sided serous effusion without evidence of bacterial infection. Throat normal. Uvula midline. NECK: Normal AROM. Supple. No lymphadenopathy. CHEST: No respiratory distress. Clear to auscultation. HEART: Regular rate and rhythm. No murmur appreciated. Normal peripheral pulses. EXTREMITIES: Normal range of motion. No edema. SKIN: Warm, dry, no rash. Capillary refill normal. Normal skin turgor. NEURO: No focal deficits. Alert and oriented x3. Gait steady. PSYCH: Normal affect. No signs of depression or anxiety. Course Course Level of Care: Express Care Visit Vital Signs Vital signs: Vital Signs Temperature 98.6 F 04/25/23 13:22 Pulse Rate 79 04/25/23 13:22 Respiratory Rate 20 04/25/23 13:22 Blood Pressure 125/63 04/25/23 13:22 Pulse Oximetry 100 04/25/23 13:22 Oxygen Delivery Room Air 04/25/23 13:22 Temperature 98.6 F 04/25/23 13:22 Pulse Rate 79 04/25/23 13:22 Respiratory Rate 20 04/25/23 13:22 Blood Pressure 125/63 04/25/23 13:22 Pulse Oxime
== END 2023-04-25 14:34 | disposition home or self-care (01) ==
PROVIDERS: Emergency Provider Nurse Practitioner
DX: J06.9 Acute upper respiratory infection, unspecified (principal); H65.01 Acute serous otitis media, right ear; F17.200 Nicotine dependence, unspecified, uncomplicated; G35 Multiple sclerosis; F41.9 Anxiety disorder, unspecified
CPT/HCPCS: 99213; G0463

== ENCOUNTER 2023-07-15 12:20 | Outpatient (CLI) | payer OTHER, SELFPAY | END 2023-07-15 12:21 | disposition home or self-care (01) | LOC: ANHIMG 12:26 | PROVIDERS: PCP Physician Assistant; Visit Provider Physician Assistant | DX: M25.562 Pain in left knee (principal) | CPT/HCPCS: 73564 ==

== ENCOUNTER 2023-12-01 09:39 | Outpatient (CLI) | payer OTHER, SELFPAY ==
--- NOTE | ~2023-12-01 | MR_ITS ---
EXAMINATION: MR knee LT wo con DATE: 12/01/2023 10:22 INDICATION: Medial meniscal tear of the left knee TECHNIQUE: Magnetic resonance imaging (MRI) of the left knee was performed without intravenous contra st. Sequences included coronal PD-weighted FSE, coronal PD-weighted FS FSE, sagittal T2-weighted FSE , sagittal PD-weighted FS FSE and axial PD weighted fat saturated FSE. COMPARISON: None. FINDINGS: Medial compartment: There is increased intrasubstance signal in the posterior horn and posterior body of the medial menis cus. This appears to extend to contact the inferior articular surface near the free edge on 2 of the sagittal fat saturated images, series 6, images 9 & 10. Mild partial-thickness cartilage loss along t he anterior to central weightbearing medial femoral condyle. There is mild surface regularity at the central weightbearing medial femoral condyle. Deep chondral fissuring with subtle associated cortical irregularity and minimal underlying edema-like signal change at the anterior weightbearing medial fe moral condyle. Lateral compartment: Lateral meniscus is normal. Articular cartilage is normal. Patellofemoral compartment: Deep chondral ulceration and fissuring with mild subarticular cystlike changes at the cephalad half o f the patellar apical ridge and immediately adjacent superolateral aspect of the medial patellar face t. Partial-thickness chondral ulceration and deep fissuring with underlying cortical irregularity at the inferior aspect of the medial trochlea. Ligaments and tendons: Anterior and posterior cruciate ligaments are normal. The medial collateral ligament and fibular lachelle ateral ligament complex are normal. The extensor mechanism is normal. The visualized medial and later al hamstring tendons as well as the iliotibial band are normal. Fluid: Physiologic amount of fluid in the joint space. No loose osteochondral bodies identified. Tiny Reynoso' s cyst. There is a larger and more extensive multilobulated ganglion cyst which extends approximately 5.3 similar craniocaudally along the deep margin of the pes anserinus which measures up to 1.4 x 0.6 cm in maximal transaxial dimensions approximately along the anterolateral margin of the semimembrano hong tendon. Osseous/other: Bone alignment is normal. No fracture or pathologic marrow replacing process. IMPRESSION: 1. Longitudinal horizontal tear at the posterior horn of the medial meniscus. 2. Mild osteoarthritis with regions of high-grade chondromalacia in the medial and patellofemoral com partments. 3. Ganglion cysts at the posterior medial aspect of the knee. Reviewed, dictated and finalized at location A. UCT COORDINATOR IMPRESSION: 1. Longitudinal horizontal tear at the posterior horn of the medial meniscus. 2. Mild osteoarthritis with regions of high-grade chondromalacia in the medial and patellofemoral compartments. 3. Ganglion cysts at the posterior medial aspect of the knee.
== END 2023-12-01 09:40 | disposition home or self-care (01) ==
PROVIDERS: PCP Physician Assistant; Visit Provider Physician Assistant
DX: S83.242D Other tear of medial meniscus, current injury, left knee, subsequent encounter (principal); M17.12 Unilateral primary osteoarthritis, left knee; M94.262 Chondromalacia, left knee; M67.462 Ganglion, left knee; X58.XXXD Exposure to other specified factors, subsequent encounter
CPT/HCPCS: 73721

== ENCOUNTER 2024-03-18 16:10 | Emergency (ER) | payer OTHER, SELFPAY ==
--- NOTE | ~2024-03-18 | XR_ITS ---
EXAMINATION: XR elbow LT min 3V DATE: 03/18/2024 16:32 INDICATION: Left elbow pain. Fall. TECHNIQUE: 4 views of left elbow were obtained. COMPARISON: Left elbow radiographs 09/13/2018 FINDINGS: Bone alignment is normal. No fracture. Joint spaces are normal. No elbow joint effusion. IMPRESSION: 1. No fracture. Reviewed, dictated and finalized at location A. IMPRESSION: 1. No fracture.
[2024-03-18 16:12] VITALS: BP 136/67; PULSE 62; RESP 18; TEMP 36.7; O2SAT 100
--- NOTE | 2024-03-18 17:13 | ED.UPPEXIN ---
HPI - Extremity Injury (Upper) General Chief Complaint: Extremity Injury, Upper Stated Complaint: fall Time Seen by Provider: 03/18/24 16:22 History of Present Illness HPI narrative: 58-year-old female presents to the emergency room for evaluation of left elbow pain. Patient states she was at [employer] earlier today, when she slipped and fell landing on her left elbow. Pain is worse with movement. Did not take any medications to alleviate her symptoms. Related Data Home Medications Medication Instructions Recorded Confirmed lorazepam 0.5 mg tablet 0.5 mg PO DAILY 11/17/21 02/27/23 cholecalciferol (vitamin D3) 1,250 1,250 mcg PO WEEKLY 02/27/23 02/27/23 mcg (50,000 unit) capsule Allergies Allergy/AdvReac Type Severity Reaction Status Date / Time guaifenesin AdvReac Intermediate Palpitation Verified 03/18/24 16:16 s Review of Systems Review of Systems: ROS unremarkable as stated in HPI PMFSH Past Medical History Medical History Anxiety Bronchitis Chronic sinusitis Depression History of dental problems Multiple sclerosis Ovarian cyst Postmenopausal Seasonal allergies Surgical History Surgical History H/O dilation and curettage H/O: Social History Social History Smoking status: Current some day smoker Alcohol intake: never Substance use: never Living arrangements: with family Gender identity (if verbalized by the patient): Female Exam Narrative: GENERAL: Well-appearing, well-nourished, no physical limitations, and in no acute distress. HEAD: Normocephalic, atraumatic. EYES: Conjunctivae normal, PERRLA and EOMI. CHEST: Clear to auscultation. No respiratory distress. No wheezes rales or rhonchi. HEART: Regular rate and rhythm. No murmur heard. Normal peripheral pulses. EXTREMITIES: Left elbow: +TTP over olecranon. No bony abnormality. No soft tissue swelling. Full range of motion. No ecchymosis. Neurovascularly intact distally SKIN: Warm, dry, no rash. No noted wounds NEURO: No focal deficits. Alert and oriented x3. MAEW. CN's II-XI intact bilaterally, normal gait PSYCH: Cooperative. Normal mood and affect. Course Vital Signs Vital signs: Vital Signs Temperature 36.7 C 03/18/24 16:12 Pulse Rate 62 03/18/24 16:12 Respiratory Rate 18 03/18/24 16:12 Blood Pressure 136/67 03/18/24 16:12 Pulse Oximetry 100 03/18/24 16:12 Oxygen Delivery Room Air 03/18/24 16:12 Temperature 36.7 C 03/18/24 16:12 Pulse Rate 62 03/18/24 16:12 Respiratory Rate 18 03/18/24 16:12 Blood Pressure 136/67 03/18/24 16:12 Pulse Oximetry 100 03/18/24 16:12 Oxygen Delivery Room Air 03/18/24 16:12 MDM - Extremity Injury (Upper) Imaging Data Radiologist's impression: Impressions Elbow X-Ray 03/18/24 16:38 IMPRESSION: 1. No fracture. Discharge Plan Discharge Clinical Impression: Contusion of elbow, left Patient Disposition: Home, Self-Care Condition: Stable Instructions: Antibiotic Form, Contusion in Adults (ED) Prescriptions: New ibuprofen 600 mg tablet 600 mg PO TID PRN (Reason: contusion) Qty: 21 0RF No Action cholecalciferol (vitamin D3) 1,250 mcg (50,000 unit) capsule 1,250 mcg PO WEEKLY lorazepam 0.5 mg tablet 0.5 mg PO DAILY meclizine 25 mg tablet 25 mg PO QID PRN (Reason: dizziness) Qty: 20 0RF fluticasone propionate [Flonase Allergy Relief] 50 mcg/actuation spray,suspension 2 spray intranasal DAILY PRN (Reason: nasal congestion) Qty: 15.8 0RF Rx Instructions: administer into each nostril Follow-up/Referrals: Aneudy,FUNMI Goyal [Primary Care Provider] - Time of Disposition: 17:17
[2024-03-18 17:31] VITALS: BP 132/81; PULSE 77; RESP 15; TEMP 36.7; O2SAT 100
== END 2024-03-18 17:32 | disposition home or self-care (01) ==
PROVIDERS: Emergency Provider Nurse Practitioner Family; PCP Physician Assistant
DX: S50.02XA Contusion of left elbow, initial encounter (principal); G35 Multiple sclerosis; J32.9 Chronic sinusitis, unspecified; F41.9 Anxiety disorder, unspecified; F32.A Depression, unspecified; F17.200 Nicotine dependence, unspecified, uncomplicated; W01.0XXA Fall on same level from slipping, tripping and stumbling without subsequent striking against object, initial encounter
CPT/HCPCS: 73080; 99283

== ENCOUNTER 2024-05-13 15:08 | Emergency (ER) | payer OTHER, SELFPAY ==
--- NOTE | ~2024-05-13 | XR_ITS ---
XR forearm LT 2V Ordering provider: Delfin Bowden APRN History: . fall . Comparison: None. FINDINGS: BONES: No acute fracture or dislocation. JOINT SPACES: Normal. SOFT TISSUES: Normal. IMPRESSION: No acute osseous abnormality left forearm. Reviewed, dictated and finalized at location A.
--- NOTE | ~2024-05-13 | XR_ITS ---
XR foot LT min 3V Ordering provider: Delfin Bowden APRN History: . fall . Comparison: None. FINDINGS: BONES: Fracture of the distal metaphysis of the third, fourth and fifth metatarsal bones. No other fr actures seen. JOINT SPACES: Narrowing of the proximal and distal interphalangeal joints. No tarsal coalition. SOFT TISSUES: Soft tissue swelling over the lateral aspect of the foot. Calcaneal spur. IMPRESSION: Fracture distal metaphysis of the third, fourth and fifth metatarsal bones. Reviewed, dictated and finalized at location A.
[2024-05-13 15:21] VITALS: BP 127/68; PULSE 86; RESP 16; TEMP 36.6; O2SAT 100
--- NOTE | 2024-05-13 16:14 | ED.FALL ---
HPI - Fall General Chief Complaint: Fall Stated Complaint: fall/left arm/left foot Time Seen by Provider: 05/13/24 15:28 History of Present Illness HPI Narrative: 59-year-old female presents to the emergency room for evaluation of injuries sustained in a fall. Patient states that she was walking up a flight of stairs when she fell landing on her left forearm and striking her left foot on concrete. Patient states that she was able to bear weight on her foot. Related Data Home Medications Medication Instructions Recorded Confirmed lorazepam 0.5 mg tablet 0.5 mg PO DAILY 11/17/21 02/27/23 cholecalciferol (vitamin D3) 1,250 1,250 mcg PO WEEKLY 02/27/23 02/27/23 mcg (50,000 unit) capsule Allergies Allergy/AdvReac Type Severity Reaction Status Date / Time guaifenesin AdvReac Intermediate Palpitation Verified 05/13/24 15:44 s Review of Systems Review of Systems: ROS unremarkable except for noted in HPI PMFSH Past Medical History Medical History Anxiety Bronchitis Chronic sinusitis Depression History of dental problems Multiple sclerosis Ovarian cyst Postmenopausal Seasonal allergies Surgical History Surgical History H/O dilation and curettage H/O: Social History Social History Smoking status: Current some day smoker Alcohol intake: never Substance use: never Living arrangements: with family Gender identity (if verbalized by the patient): Female Exam Narrative: GENERAL: Well-appearing, well-nourished, no physical limitations, and in no acute distress. HEAD: Normocephalic, atraumatic. EYES: Conjunctivae normal, PERRLA and EOMI. CHEST: Clear to auscultation. No respiratory distress. No wheezes rales or rhonchi. HEART: Regular rate and rhythm. No murmur heard. Normal peripheral pulses. EXTREMITIES: Left Forearm: +TTP with hematoma to posterior surface of distal forearm. Left foot: +TTP with STS to 3rd-5th metacarpals SKIN: Warm, dry, no rash. No noted wounds NEURO: No focal deficits. Alert and oriented x3. MAEW. CN's II-XI intact bilaterally PSYCH: Cooperative. Normal mood and affect. Course Vital Signs Vital signs: Vital Signs Temperature 36.6 C 05/13/24 15:21 Pulse Rate 86 05/13/24 15:21 Respiratory Rate 16 05/13/24 15:21 Blood Pressure 127/68 05/13/24 15:21 Pulse Oximetry 100 05/13/24 15:21 Oxygen Delivery Room Air 05/13/24 15:21 Temperature 36.6 C 05/13/24 15:21 Pulse Rate 86 05/13/24 15:21 Respiratory Rate 16 05/13/24 15:21 Blood Pressure 127/68 05/13/24 15:21 Pulse Oximetry 100 05/13/24 15:21 Oxygen Delivery Room Air 05/13/24 15:21 Discharge Plan Discharge Clinical Impression: Foot fracture, left Patient Disposition: Home, Self-Care Condition: Stable Instructions: Antibiotic Form, Foot Fracture in Adults (ED) Prescriptions: New naproxen 500 mg tablet 500 mg PO BID Qty: 30 0RF hydrocodone-acetaminophen 5-325 mg tablet 1 tablet PO Q8H PRN (Reason: pain) Qty: 15 0RF No Action cholecalciferol (vitamin D3) 1,250 mcg (50,000 unit) capsule 1,250 mcg PO WEEKLY lorazepam 0.5 mg tablet 0.5 mg PO DAILY meclizine 25 mg tablet 25 mg PO QID PRN (Reason: dizziness) Qty: 20 0RF fluticasone propionate [Flonase Allergy Relief] 50 mcg/actuation spray,suspension 2 spray intranasal DAILY PRN (Reason: nasal congestion) Qty: 15.8 0RF Rx Instructions: administer into each nostril ibuprofen 600 mg tablet 600 mg PO TID PRN (Reason: contusion) Qty: 21 0RF Follow-up/Referrals: Aneudy,FUNMI Goyal [Primary Care Provider] - Esau Amado MD [Physician] - Time of Disposition: 16:24
== END 2024-05-13 16:40 | disposition home or self-care (01) ==
PROVIDERS: Emergency Provider Nurse Practitioner Family; PCP Physician Assistant
DX: S92.332A Displaced fracture of third metatarsal bone, left foot, initial encounter for closed fracture (principal); S92.342A Displaced fracture of fourth metatarsal bone, left foot, initial encounter for closed fracture; S92.352A Displaced fracture of fifth metatarsal bone, left foot, initial encounter for closed fracture; S59.912A Unspecified injury of left forearm, initial encounter; G35 Multiple sclerosis; J32.9 Chronic sinusitis, unspecified; F17.200 Nicotine dependence, unspecified, uncomplicated; Z79.899 Other long term (current) drug therapy; W10.9XXA Fall (on) (from) unspecified stairs and steps, initial encounter
CPT/HCPCS: 29515; 73090; 73630; 99284

== ENCOUNTER 2024-07-26 12:41 | Emergency (ER) | payer OTHER, SELFPAY ==
[2024-07-26 12:49] VITALS: BP 118/59; PULSE 68; RESP 18; TEMP 37.1; O2SAT 100
--- NOTE | 2024-07-26 13:23 | ED.GENADULT ---
HPI - General Adult General Chief complaint: Ear Stated complaint: Ears Irritation/Sinus Source: patient Mode of arrival: ambulatory Limitations: no limitations History of Present Illness HPI narrative: Patient presents for evaluation of sick symptoms for last 3 days. Symptoms include sinus congestion, frontal headache, bilateral low ear pressure, muffled hearing in the ear, green nasal drainage, cough, fever and chills. No nausea, vomiting, diarrhea, shortness of breath. She thinks she has had some sick contacts but she cannot provide me with any specific contact. She has not been taking any medication to assist with her symptoms. She does not smoke. Related Data Home Medications Medication Instructions Recorded Confirmed lorazepam 0.5 mg tablet 0.5 mg PO DAILY 11/17/21 07/26/24 cholecalciferol (vitamin D3) 1,250 1,250 mcg PO WEEKLY 02/27/23 07/26/24 mcg (50,000 unit) capsule levothyroxine 25 mcg tablet 25 mcg PO DAILY 07/26/24 07/26/24 Allergies Allergy/AdvReac Type Severity Reaction Status Date / Time guaifenesin AdvReac Intermediate Palpitation Verified 07/26/24 12:42 s Review of Systems Review of Systems: CONSTITUTIONAL: Reports fever and chills. EYES: Denies visual changes, redness, or discharge. ENT: Reports sinus congestion, nasal drainage, bilateral ear pressure, muffled hearing CARDIOVASCULAR: Denies chest pain, palpitations, or edema. RESPIRATORY: reports cough. Denies shortness of breath. GASTROINTESTINAL: Denies abdominal pain, nausea, vomiting, or diarrhea. GENITOURINARY: Denies dysuria or hematuria. SKIN: Denies rash or itching. MUSCULOSKELETAL: Denies back pain, joint pain, or myalgia. NEUROLOGIC: reports frontal headache. Denies numbness, dizziness, or weakness. PSYCHIATRIC: Denies anxiety or depression. [facility] Past Medical History Medical History Anxiety Bronchitis Chronic sinusitis Depression History of dental problems Multiple sclerosis Ovarian cyst Postmenopausal Seasonal allergies Surgical History Surgical History H/O dilation and curettage H/O: Family History Family History Father Heart disease Hypertension Mother Hypertension Sibling , bone cancer No problems noted. Sibling POTS (postural orthostatic tachycardia syndrome) Social History Social History Smoking status: Current some day smoker Second hand tobacco smoke exposure: Yes Alcohol intake: never Substance use: current Substance use type: marijuana Current Housing: Decline to Answer Concerned About Future Housing: Decline to Answer Difficulty Paying Gas/Electric Bills: Decline to Answer Difficulty Paying for Meds: Decline to Answer Currently Unemployed: Decline to Answer Education: Decline to Answer Difficulty w/ Childcare or Family Care: Decline to Answer Living arrangements: alone Occupation/Education: unemployed Gender identity (if verbalized by the patient): Female Exam Narrative: GENERAL: Well-appearing, well-nourished, and in no acute distress. HEAD: Normocephalic, atraumatic. EYES: PERRLA and EOMI. ENT: Nares clear, no rhinorrhea or epistaxis. Mucous membranes moist. Oropharynx without tonsillar hypertrophy exudate or other lesions. There is frontal and bilateral maxillary sinus tenderness. There are bilateral middle ear effusions NECK: Supple. No adenopathy or masses. No carotid bruits or JVD CHEST: Clear to auscultation. No respiratory distress. No wheezes rales or rhonchi HEART: Regular rate and rhythm. No murmur heard. Normal peripheral pulses. ABDOMEN: Soft, nontender, nondistended, normal active bowel sounds. EXTREMITIES: Normal range of motion. No edema. SKIN: Warm
== END 2024-07-26 13:05 | disposition home or self-care (01) ==
PROVIDERS: Emergency Provider Nurse Practitioner; PCP Physician Assistant
DX: J32.9 Chronic sinusitis, unspecified (principal); F17.200 Nicotine dependence, unspecified, uncomplicated; F12.90 Cannabis use, unspecified, uncomplicated; G35 Multiple sclerosis; F41.9 Anxiety disorder, unspecified
CPT/HCPCS: 99213; G0463

== ENCOUNTER 2025-04-03 09:16 | Emergency (ER) | payer OTHER, SELFPAY ==
[2025-04-03 09:23] VITALS: BP 142/59; PULSE 68; RESP 16; TEMP 36.7; O2SAT 100
--- NOTE | 2025-04-03 09:38 | ED_ITS ---
HPI - URI/Sore Throat General Chief Complaint: Upper Respiratory Infection Stated Complaint: Sinus Time Seen by Provider: 04/03/25 09:30 Source: patient and RN notes reviewed Mode of arrival: ambulatory Limitations: no limitations History of Present Illness HPI Narrative: 60-year-old female presents Express Care complaining of upper respiratory symptoms for 2 weeks. Patient reports having sinus pressure, mucopurulent nasal discharge, ear fullness, and a cough. Patient denies any other upper respiratory symptoms, fevers, body aches, chills. Patient denies any chest pain shortness of breath. Patient has not tried anything [id number]. Patient has a history of anxiety. Related Data Home Medications ?Medication ?Instructions ?Recorded ?Confirmed ?Last Taken ?Type lorazepam 0.5 mg tablet 0.5 mg PO DAILY 11/17/21 08/20/24 Unknown History levothyroxine 25 mcg tablet 25 mcg PO DAILY 07/26/24 08/20/24 Unknown History ibuprofen 800 mg tablet mg 04/03/25 Unknown History Allergies Allergy/AdvReac Type Severity Reaction Status Date / Time guaifenesin AdvReac Intermediate Palpitation Verified 04/03/25 09:17 s Review of Systems Review of Systems: CONSTITUTIONAL: Denies fever, chills, body aches, or sweats. EYES: Denies visual changes, redness, or discharge. ENT: Positive for congestion and sinus pressure. Negative for rhinorrhea, sore throat, or otalgia. CARDIOVASCULAR: Denies chest pain, palpitations, or edema. RESPIRATORY: Positive for cough. Negative for dyspnea. GASTROINTESTINAL: Denies abdominal pain, nausea, vomiting, or diarrhea. GENITOURINARY: Denies dysuria or hematuria. SKIN: Denies rash or itching. MUSCULOSKELETAL: Denies back pain, joint pain, or myalgia. NEUROLOGIC: Denies headache, numbness, or weakness. PSYCHIATRIC: Denies anxiety or depression. All other systems reviewed are negative, except as documented in HPI. [facility] Past Medical History Medical History Depression Anxiety Postmenopausal Ovarian cyst Bronchitis Multiple sclerosis History of dental problems Chronic sinusitis Seasonal allergies Surgical History Surgical History H/O: H/O dilation and curettage Family History Family History Father Heart disease Hypertension Mother Hypertension Sibling , bone cancer No problems noted. Sibling POTS (postural orthostatic tachycardia syndrome) Social History Social History Smoking status: Never smoker Second hand tobacco smoke exposure: Yes Alcohol intake: never Substance use: current Substance use type: marijuana Do You Feel Safe in your Home?: Yes Lack of Transportation: No Lack of Food: Never True Current Housing: I Do Not Have Housing Concerned About Future Housing: No Difficulty Paying Gas/Electric Bills: YES Difficulty Paying for Meds: No Currently Unemployed: YES Education: High School Diploma/GED Difficulty w/ Childcare or Family Care: No Living arrangements: alone Occupation/Education: unemployed Gender identity (if verbalized by the patient): Female Comments At the time of my signature, I reviewed and agree with the nursing past medical, surgical, social, and family history. There is no relevant family history pertinent to the patient complaint. Exam Narrative: GENERAL: This is a well-nourished, well-developed adult, in no apparent distress. They are non ill-appearing, nontoxic appearing. HEAD: normocephalic, atraumatic. EYES: Sclera clear/white. Vision is grossly intact. Conjunctiva normal bilaterally. Extraocular movements intact. EARS: External ears normal, auditory canals clear and without drainage, TMs without erythema or perforation. Hearing grossly intact. NOSE: External nose normal with no obvious nasal discharge, nasal turbinates erythematous, no rhinorrhea. Sinus tenderness to palpation to the maxillary and frontal sinuses. THROAT: Mucous membranes moist, posterior pharynx without redness or swelling, no exudate. Uvula is midline. Postnasal drip present. NECK: Neck supple, non-tender without lymphadenopathy, masses or thyromegaly. CARDIOVASCULAR: Regular rate and rhythm without murmurs, gallops, or rubs. RESPIRATORY: Clear to auscultation. Breath sounds equal bilaterally. No wheezes, rales, or rhonchi. SKIN: warm, Dry, intact with no suspicious lesions or rash, good texture and turgor. NEURO: awake, alert, and oriented to person, place and time. There were no obvious focal neurologic abnormalities. EXTREMITIES: No joint tenderness, effusion, or edema noted. BACK: Nontender without deformity. Course Course Emergency Course: Portions of this record may have been created with voice recognition software Level of Care: Express Care Visit Vital Signs Vital signs: Vital Signs Temperature 98.0 F 04/03/25 09:23 Pulse Rate 68 04/03/25 09:23 Respiratory Rate 16 04/03/25 09:23 Blood Pressure 142/59 H 04/03/25 09:23 Pulse Oximetry 100 04/03/25 09:23 Oxygen Delivery Room Air 04/03/25 09:23 Temperature 98.0 F 04/03/25 09:23 Pulse Rate 68 04/03/25 09:23 Respiratory Rate 16 04/03/25 09:23 Blood Pressure 142/59 H 04/03/25 09:23 Pulse Oximetry 100 04/03/25 09:23 Oxygen Delivery Room Air 04/03/25 09:23 MDM - URI/Sore Throat MDM Narrative Medical decision making narrative: Given patient's length the symptoms is likely she has developed a bacterial sinusitis. Treat empirically with Augmentin. Discussed physical exam findings. Advised supportive measures and signs/symptoms to go to the ER. Pt is appropriate for outpt treatment and f/u. Differential Diagnosis Differential diagnosis: Likely upper respiratory infection, sinusitis and viral infection Discharge Plan Discharge Clinical Impression: Sinusitis Qualifiers: Sinusitis location: unspecified location Chronicity: acute Recurrence: non- recurrent Qualified Code(s): J01.90 - Acute sinusitis, unspecified Patient Disposition: Home Condition: Stable Instructions: Antibiotic Form, Sinusitis (ED) Additional Instructions: Take the antibiotics as directed and complete the course even if you start to feel better. You may use a Neti pot saline rinse 3 times a day with lukewarm distilled water Continue to take Tylenol or Motrin for pain. Use a humidifier or vaporizer at night. Drink plenty of water. 8-10 glasses per day. Use flonase 2 times per day for 5 days then as needed Follow up with Primary provider in 3-5 days Please go to the ER if he develops any difficulty breathing, worsening symptoms, or any other concerns Patient Language: Finnish Prescriptions: New amoxicillin-pot clavulanate 875-125 mg tablet 1 tablet PO Q12H 7 Days Qty: 14 0RF No Action fluticasone propionate [Flonase Allergy Relief] 50 mcg/actuation spray,suspension 2 spray intranasal DAILY Qty: 16 0RF Rx Instructions: administer into each nostril levothyroxine 25 mcg tablet 25 mcg PO DAILY lorazepam 0.5 mg tablet 0.5 mg PO DAILY ibuprofen 800 mg tablet Follow-up/Referrals: Aneudy,FUNMI Goyal [Primary Care Provider] - Time of Disposition: 09:36
== END 2025-04-03 09:38 | disposition home or self-care (01) ==
PROVIDERS: PCP Physician Assistant
DX: J01.90 Acute sinusitis, unspecified (principal); G35 Multiple sclerosis; F41.9 Anxiety disorder, unspecified
CPT/HCPCS: 99213; G0463

== ENCOUNTER 2025-05-04 10:27 | Emergency (ER) | payer OTHER, SELFPAY ==
[2025-05-04 10:37] VITALS: BP 147/57; PULSE 71; RESP 20; TEMP 36.6; O2SAT 100
--- NOTE | 2025-05-04 11:33 | ED_ITS ---
HPI - Ear Problem General Chief complaint: Ear Stated complaint: ears ringing/dizzy Time Seen by Provider: 05/04/25 10:30 Source: patient Mode of arrival: ambulatory Limitations: no limitations History of Present Illness HPI Narrative: Patient is a 60-year-old female that presents with 4 days of ear fullness, ear ringing and intermittent dizziness. Patient also has sinus congestion, sinus pressure. States she has horrible allergies but does not take allergy medicine daily. Denies any fever, chills, nausea, vomiting, diarrhea. Denies any numbness, tingling or weakness to extremities. Related Data Home Medications ?Medication ?Instructions ?Recorded ?Confirmed ?Last Taken ?Type lorazepam 0.5 mg tablet 0.5 mg PO DAILY 11/17/21 08/20/24 Unknown History levothyroxine 25 mcg tablet 25 mcg PO DAILY 07/26/24 08/20/24 Unknown History ibuprofen 800 mg tablet mg 04/03/25 Unknown History Allergies Allergy/AdvReac Type Severity Reaction Status Date / Time guaifenesin AdvReac Intermediate Palpitation Verified 05/04/25 10:36 s Review of Systems Review of Systems: All systems reviewed & are unremarkable except as noted in HPI and below Constitutional: Constitutional: Denies body ache(s), Denies chills, Denies fever(s), Denies headache(s) and Denies malaise Eyes: Eyes: Denies blurry vision, Denies eye discharge and Denies irritation ENT: Reports dizziness, Denies headache(s), Reports nasal congestion, Denies nasal discharge, Reports sinus pain, Reports sinus pressure and Denies sore throat Cardiovascular: Cardiovascular: Denies chest pain, Denies edema, Denies palpitations and Denies dyspnea on exertion Respiratory: Respiratory: Denies cough and Denies dyspnea on exertion Gastrointestinal: Gastrointestinal: Denies abdominal pain, Denies diarrhea, Denies nausea and Denies vomiting Musculoskeletal: Musculoskeletal: Denies back pain, Denies arthralgias and Denies muscle weakness Integumentary/Breasts: Skin/Breast: Denies pruritus and Denies rash Neurologic: Denies headache(s) Psychiatric: Psychiatric: Reports no additional psychiatric complaints Endocrine: Endocrine: Denies palpitations PMFSH Past Medical History Medical History Depression Anxiety Postmenopausal Ovarian cyst Bronchitis Multiple sclerosis History of dental problems Chronic sinusitis Seasonal allergies Surgical History Surgical History H/O: H/O dilation and curettage Family History Family History Father Heart disease Hypertension Mother Hypertension Sibling , bone cancer No problems noted. Sibling POTS (postural orthostatic tachycardia syndrome) Social History Social History Smoking status: Never smoker Second hand tobacco smoke exposure: Yes Alcohol intake: never Substance use: current Substance use type: marijuana Do You Feel Safe in your Home?: Yes Lack of Transportation: No Lack of Food: Never True Current Housing: I Do Not Have Housing Concerned About Future Housing: No Difficulty Paying Gas/Electric Bills: YES Difficulty Paying for Meds: No Currently Unemployed: YES Education: High School Diploma/GED Difficulty w/ Childcare or Family Care: No Living arrangements: alone Occupation/Education: unemployed Gender identity (if verbalized by the patient): Female Comments At time of signature, agree with nursing past medical, surgical, social and family history. There is no relevant family history pertinent to the presenting complaint? Exam Const: General: cooperative, healthy appearing, no acute distress and well nourished Nutritional Appearance: well nourished Orientation/consciousness: patient oriented x3 Limitations: no limitations HENMT: Head: normal to inspection, normocephalic and atraumatic Ears: hearing grossly normal bilaterally, EAC's normal, no periauricular adenopathy and TM abnormal wth effusion serous bilateral Face/Nose/Sinus: Normal external nose present, Normal nares present, Normal nasal mucous membranes and turbinates present, No nasal discharge present, normal facial exam and Facial tenderness on exam of face and sinuses Face and sinus: normal facial exam and sinus tenderness maxillary Mouth: Yes Normal oral and palatal mucosa present, Yes lip normal, Yes tongue normal and Yes moist mucous membranes Throat: posterior oropharynx normal, tonsils normal and uvula midline Eyes: General: appearance normal, both eyes and all related structures Alignment and Position: alignment normal and position normal Eyelids: eyelids normal Pupils: Equal, round and reactive pupils present EOM: EOMs intact bilaterally Neck: Neck: normal visual inspection, full ROM, no lymphadenopathy and supple Chest: Chest palpation & inspection: normal inspection of the chest Resp: Effort & Inspection: normal respiratory effort and able to speak in complete sentences Auscultation: clear to auscultation bilaterally, no crackles, no rales, no rhonchi and no wheezes Cardio: Rate: regular rate Rhythm: regular rhythm Heart sounds: S1 normal heart sound present and S2 normal heart sound present Skin: General skin exam: normal color and no rashes or lesions noted Neuro: General: patient oriented x3 and moves all extremities Cranial nerves: Yes Equal, round and reactive pupils present Cognition (Neuro): normal cognition Speech: normal speech Gait exam (Neuro): Normal gait present Extrem: General: normal to inspection and full ROM Psych: Appearance: grossly normal and well kempt Mental Status: mental status grossly normal Speech and movement: Normal speech and movement present Course Course Emergency Course: Patient is aware of diagnosis, understands and agrees to treatment plan.? Anticipatory guidance given.? Patient agrees to follow-up as directed and is aware of reasons to seek care at the emergency department.? Portions of this record may have been created with voice recognition software? Level of Care: Express Care Visit Vital Signs Vital signs: Vital Signs Temperature 36.6 C 05/04/25 10:37 Pulse Rate 71 05/04/25 10:37 Respiratory Rate 20 05/04/25 10:37 Blood Pressure 147/57 H 05/04/25 10:37 Pulse Oximetry 100 05/04/25 10:37 Oxygen Delivery Room Air 05/04/25 10:37 Temperature 36.6 C 05/04/25 10:37 Pulse Rate 71 05/04/25 10:37 Respiratory Rate 20 05/04/25 10:37 Blood Pressure 147/57 H 05/04/25 10:37 Pulse Oximetry 100 05/04/25 10:37 Oxygen Delivery Room Air 05/04/25 10:37 Reviewed Medical Decision Making MDM Narrative Medical decision making narrative: She symptoms consistent with sinusitis. Patient is treated month ago for same symptoms. Discussed the importance of taking allergy medicine every day if she has seasonal allergies. Will treat with antibiotics and steroids Pt well hydrated appearing, in no respiratory distress, hemodynamically stable. Recommend supportive care. The patient is stable at time of discharge the clinical impression was discussed and the patient was given the opportunity to ask questions, which were addressed as completely as possible given the information available at present. Anticipatory guidance and return to care precautions were discussed and the importance of primary care follow-up was stressed and encouraged. The patient voiced understanding of the plan, indications to return, and the need for follow-up. Exam findings show no acute concerns or changes Patient is appropriate for outpatient treatment and follow-up. Differential diagnosis considered: otitis media, otitis externa, otitis effusion, foreign body, cerumen impaction, viral syndrome, sinusitis, viral illness Medical Records Medical records reviewed: Yes I reviewed the external patient's medical records. Vital Signs Vital Signs: Vital Signs Temperature 36.6 C 05/04/25 10:37 Pulse Rate 71 05/04/25 10:37 Respiratory Rate 20 05/04/25 10:37 Blood Pressure 147/57 H 05/04/25 10:37 Pulse Oximetry 100 05/04/25 10:37 Oxygen Delivery Room Air 05/04/25 10:37 Temperature 36.6 C 05/04/25 10:37 Pulse Rate 71 05/04/25 10:37 Respiratory Rate 20 05/04/25 10:37 Blood Pressure 147/57 H 05/04/25 10:37 Pulse Oximetry 100 05/04/25 10:37 Oxygen Delivery Room Air 05/04/25 10:37 Discharge Plan Discharge Clinical Impression: Sinusitis, Acute effusion of both middle ears Patient Disposition: Home Condition: Stable Instructions: Sinusitis (ED), Fluid In The Ear (Serous Otitis Media) (ED) Additional Instructions: Take antibiotics as prescribed. Take steroids in the morning with food. Take allergy medicine every day Symptomatic treatment of a sinus infection aims to relieve symptoms. These treatments do not shorten the duration of illness. Nonprescription pain medications, such as acetaminophen (eg, Tylenol) or ibuprofen (eg, Motrin, Advil), are recommended for pain. Flushing the nose and sinuses with a saline solution several times per day has been proven to decrease pain associated with congestion and shorten the duration of symptoms. Nasal steroids (such as Flonase, 2 sprays in each nostril daily) can help to reduce swelling inside the nose, usually within two to three days. These drugs have few side effects and relieve symptoms in most people. Oral decongestants (pseudoephedrine and phenylephrine) may be helpful if you have associated symptoms of ear pain or fullness. Nasal decongestant sprays, including oxymetazoline (Afrin) and phenylephrine (Bola-Synephrine), can be used to temporarily treat congestion. However, these sprays should not be used for more than two to three days due to the risk of rebound congestion (when the nose becomes congested constantly unless the medication is used repeatedly), possible addiction, and long-term consequences of frequent use, including persistent nasal dryness and crusting, which is very difficult to treat once it has developed. Medications to thin secretions (such as guaifenesin) may help to clear mucus. Please follow-up with your primary care doctor in the next 1-2 days. If you cannot follow-up with your primary care doctor please go to the ED for any urgent issues. If you have any worsening of symptoms or any other concerns please go to the ED immediately. Your blood pressure was elevated above 120/80 today at Urgent Care. This puts you above the threshold for follow up visit with a primary care provider. High blood pressure does not usually cause any symptoms, however it may lead to kidney failure, stroke, heart disease just to name a few if untreated . Many people are anxious when seeing a provider or nurse. As a result, you are not diagnosed with hypertension at this time unless your blood pressure is persistently high at two office visits at least one week apart. Some things that can help lower blood pressure are lifestyle modifications, such as light exercise, decreased salt in diet, and weight loss. It is important to follow up with a PCP about this within 1 week. Patient Language: Telugu Prescriptions: New prednisone 20 mg tablet 40 mg PO DAILY 5 Days Qty: 10 0RF doxycycline monohydrate 100 mg tablet 100 mg PO BID 10 Days Qty: 20 0RF No Action fluticasone propionate [Flonase Allergy Relief] 50 mcg/actuation spray,suspension 2 spray intranasal DAILY Qty: 16 0RF Rx Instructions: administer into each nostril levothyroxine 25 mcg tablet 25 mcg PO DAILY lorazepam 0.5 mg tablet 0.5 mg PO DAILY ibuprofen 800 mg tablet Follow-up/Referrals: Aneudy,FUNMI Goyal [Primary Care Provider] - 3 Days Stand Alone Forms: Work/School Release IP Time of Disposition: 11:46
== END 2025-05-04 11:53 | disposition home or self-care (01) ==
PROVIDERS: Emergency Provider Nurse Practitioner Family; PCP Physician Assistant
DX: J32.9 Chronic sinusitis, unspecified (principal); H65.03 Acute serous otitis media, bilateral; G35 Multiple sclerosis; F41.9 Anxiety disorder, unspecified
CPT/HCPCS: 99213; G0463

== ENCOUNTER 2025-07-04 11:38 | Emergency (ER) | payer OTHER, SELFPAY ==
[2025-07-04 11:50] VITALS: BP 127/61; PULSE 90; RESP 20; TEMP 36.4; O2SAT 100
--- NOTE | 2025-07-04 11:53 | ED.DENTAL ---
HPI - Dental/Oral General Chief complaint: Upper Respiratory Infection Stated complaint: tooth pain/pain in both ears patient presents to the Psychiatric with complaints of nasal congestion, headache, fatigue, sinus pain that began about 1 week ago. Patient also noted increased pain to right lower tooth and some gum swelling noted this is a chronic problem she is trying to get in with a dentist to have this tooth pulled or have root canal done like she has been told she has needed before. Patient believes she has a sinus infection, noted that she has had doxycycline recently for sinus infection and this worked very well and did not cause stomach upset. Denies fever, chills, body aches, dizziness, shortness of breath, nausea, vomiting, diarrhea. Related Data Home Medications ?Medication ?Instructions ?Recorded ?Confirmed ?Last Taken ?Type lorazepam 0.5 mg tablet 0.5 mg PO DAILY 11/17/21 08/20/24 Unknown History levothyroxine 25 mcg tablet 25 mcg PO DAILY 07/26/24 08/20/24 Unknown History ibuprofen 800 mg tablet mg 04/03/25 Unknown History Allergies Allergy/AdvReac Type Severity Reaction Status Date / Time guaifenesin AdvReac Intermediate Palpitation Verified 07/04/25 11:44 s Review of Systems Constitutional: Constitutional: Reports as per HPI, Denies chills, Reports fatigue, Denies fever(s) and Denies weakness Eyes: Eyes: Reports no additional eye complaints ENT: Reports as per HPI, Denies vertigo, Denies dizziness, Reports nasal congestion and Reports sore throat Comments: Right lower dental pain, sinus pain Cardiovascular: Cardiovascular: Reports no additional cardiovascular complaints Respiratory: Respiratory: Reports as per HPI, Reports chest congestion and Reports cough Gastrointestinal: Gastrointestinal: Reports as per HPI, Denies diarrhea, Denies nausea and Denies vomiting Genitourinary: Genitourinary: Reports no additional female genitourinary complaints Musculoskeletal: Musculoskeletal: Reports no additional musculoskeletal complaints Integumentary/Breasts: Skin/Breast: Reports as per HPI, Denies erythema, Denies rash and Denies skin ulcer Neurologic: Reports as per HPI, Denies vertigo, Denies dizziness and Reports headache(s) Psychiatric: Psychiatric: Reports no additional psychiatric complaints Endocrine: Endocrine: Reports no additional endocrine complaints Hematologic/Lymphatic: Hematologic/Lymphatic: Reports no additional hematologic/lymphatic complaints Allergic/Immunologic: Allergic/Immunologic: Reports as per HPI, Denies lip swelling, Denies throat swelling, Denies tongue swelling and Denies wheezing Comments: seasonal allergies PMFSH Past Medical History Medical History Depression Anxiety Postmenopausal Ovarian cyst Bronchitis Multiple sclerosis History of dental problems Chronic sinusitis Seasonal allergies Surgical History Surgical History H/O: H/O dilation and curettage Family History Family History Father Heart disease Hypertension Mother Hypertension Sibling , bone cancer No problems noted. Sibling POTS (postural orthostatic tachycardia syndrome) Social History Social History Smoking status: Never smoker Second hand tobacco smoke exposure: Yes Alcohol intake: never Substance use: current Substance use type: marijuana Do You Feel Safe in your Home?: Yes Lack of Transportation: No Lack of Food: Never True Current Housing: I Do Not Have Housing Concerned About Future Housing: No Difficulty Paying Gas/Electric Bills: YES Difficulty Paying for Meds: No Currently Unemployed: YES Education: High School Diploma/GED Difficulty w/ Childcare or Family Care: No Living arrangements: alone Occupation/Education: unemployed Gender identity (if verbalized by the patient): Female Exam Const: General: healthy appearing and no acute distress Nutritional Appearance: well nourished Orientation/consciousness: patient oriented x3 Limitations: no limitations HENMT: Head: normal to inspection Ears: external ears normal and TM's normal bilaterally Face/Nose/Sinus: Normal external nose present Face and sinus: normal facial exam and sinus tenderness maxillary Mouth: Yes Normal oral and palatal mucosa present, Yes lip normal and Yes moist mucous membranes Teeth and gingiva: abnormal tooth and associated gingiva Throat: posterior oropharynx abnormal ( mild erythema noted no edema or exudate) Other: right lower molars significant decay noted with mild gum swelling- no obvious abscess noted Neck: Neck: not normal to visual inspection ( obviously enlarged thyroid) and no lymphadenopathy Resp: Effort & Inspection: normal respiratory effort Auscultation: clear to auscultation bilaterally Cardio: Rate: regular rate Rhythm: regular rhythm Skin: General skin exam: normal color Rashes: no rashes Wounds: no wounds Neuro: General: patient oriented x3 Speech: normal speech Gait exam (Neuro): Normal gait present Psych: Mental Status: mental status grossly normal Affect: normal affect Attitude: cooperative Course Course Level of Care: Express Care Visit Vital Signs Vital signs: Vital Signs Temperature 97.5 F L 07/04/25 11:50 Pulse Rate 90 07/04/25 11:50 Respiratory Rate 20 07/04/25 11:50 Blood Pressure 127/61 07/04/25 11:50 Pulse Oximetry 100 07/04/25 11:50 Oxygen Delivery Room Air 07/04/25 11:50 Temperature 97.5 F L 07/04/25 11:50 Pulse Rate 90 07/04/25 11:50 Respiratory Rate 20 07/04/25 11:50 Blood Pressure 127/61 07/04/25 11:50 Pulse Oximetry 100 07/04/25 11:50 Oxygen Delivery Room Air 07/04/25 11:50 MDM - Dental/Oral MDM Narrative Medical decision making narrative: patient reports previous antibiotic doxycycline very for sinus infection. Requesting medication The patient was evaluated by myself in the express care. History is obtained from patient who is an independent historian and physical exam was performed. Available medical records were reviewed at this time. Exam findings show no acute concerns or changes; patient is non-toxic appearing and is in no distress. Patient is appropriate for outpatient treatment and follow-up. I have evaluated and discussed social determinants of health with the patient that could potentially impact subsequent diagnosis and treatment plans. Differential diagnosis and treatment plan were discussed with the patient. Patient agrees with discussion and after shared medical decision making agrees with plan of care. All questions were answered to the patient's satisfaction. Differential Diagnosis Differential diagnosis: Likely gingival abscess, toothache, fracture of tooth and other ( upper respiratory infection, sinusitis, pharyngitis) Medical Records Attestation: I reviewed the patient's medical records. Discharge Plan Discharge Clinical Impression: Toothache, Sinusitis Patient Disposition: Home Condition: Stable Instructions: Antibiotic Form, Sinusitis (ED), Toothache (ED) Additional Instructions: Return to urgent care or go to the ER for new or worsening symptoms. Continue to take Tylenol or Motrin for pain. Use a humidifier or vaporizer at night. Take Medications as prescribed. Drink plenty of water. 8-10 glasses per day. Use flonase 2 times per day for 5 days then as needed Take mucinex 2 times per day and be sure to take with 8oz of water. Follow up with Primary provider if not getting better. Return to Express Care or go to the ER for new or worsening symptoms. Take the full dose of antibiotics as directed Increase water intake to 8-10 glasses per day Patient Language: [place] Islander Prescriptions: New doxycycline monohydrate 100 mg capsule 100 mg PO BID Qty: 20 0RF lidocaine HCl [Lidocaine Viscous] 2 % solution 1 applic mucous membrane QID PRN (Reason: pain) Qty: 100 0RF triamcinolone acetonide [Nasacort Allergy] 55 mcg aerosol,spray 2 spray intranasal DAILY Qty: 16.9 0RF Rx Instructions: administer into each nostril No Action fluticasone propionate [Flonase Allergy Relief] 50 mcg/actuation spray,suspension 2 spray intranasal DAILY Qty: 16 0RF Rx Instructions: administer into each nostril levothyroxine 25 mcg tablet 25 mcg PO DAILY lorazepam 0.5 mg tablet 0.5 mg PO DAILY ibuprofen 800 mg tablet Follow-up/Referrals: Aneudy,FUNMI Goyal [Primary Care Provider, [facility]] Time of Disposition: 12:14
== END 2025-07-04 12:19 | disposition home or self-care (01) ==
PROVIDERS: Emergency Provider Nurse Practitioner Family; PCP Physician Assistant
DX: K08.89 Other specified disorders of teeth and supporting structures (principal); J32.9 Chronic sinusitis, unspecified; G35 Multiple sclerosis; F41.9 Anxiety disorder, unspecified
CPT/HCPCS: 99213; G0463

== ENCOUNTER 2025-09-29 10:58 | Outpatient (CLI) | payer OTHER, SELFPAY ==
--- NOTE | ~2025-09-29 | XR_ITS ---
EXAMINATION: XR foot LT min 3V, 09/29/2025 11:20 SUPERVISORY TRAINING SPECIALIST HISTORY: pain in left foot, BROKE 2 YEARS AGO COMPARISON: No comparisons available. Findings: There is a remote fracture of the fifth metatarsal, no acute fracture identified. Moderate degenerative changes of the first metatarsal phalangeal joint Soft tissues unremarkable. Impression: No acute fracture or malalignment. Reviewed, dictated and finalized at location P. RVISORY TRAINING SPECIALIST Impression: No acute fracture or malalignment.
--- NOTE | ~2025-09-29 | XR_ITS ---
EXAMINATION: XR ankle LT min 3V, 09/29/2025 11:20 OCCUPATIONAL HEALTH NURSE HISTORY: pain in left foot, BROKE 2 YEARS AGO COMPARISON: No comparisons available. Findings: No acute fracture or malalignment. No significant degenerative changes. Soft tissues unremarkable. Impression: No acute fracture or malalignment. Reviewed, dictated and finalized at location P. PATIONAL HEALTH NURSE Impression: No acute fracture or malalignment.
--- OUTSIDE RECORDS SUMMARY | 2025-09-29 12:36 | XMS_ITS | Clinical Summary ---
Author Organization [facility] Address [address] [address] Care Team Providers Care Licensed Final Expense Agents Name Role Phone Zuhair Amado Primary Care Provider + Source Comments [facility],non-owned Affiliates and Associated Physician Practices is amultiple site organization consisting of ambulatory clinics and hospital sitesin [place], [place], [place] and [place]. This disclosure is being madepursuant to the Care Everywhere program and may not contain all information available regarding this patient. 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 Gender Identity Not on file Sexual Orientation Not on file Plan of Treatment Health Maintenance Due Date Last Done Comments COLOGUARD (AGES 45-75) - COL ON CA SCREENING 1966 COLON MONITORING 1966 COLONOSCOPY - COLON CA SCREENING 1966 CT COLONOGRAPHY - COLON CA SCREENING 1966 Colorectal Cancer Screening 1966 FIT - COLON CA SCREENING 1966 FLEX SIG - COLON CA SCREENING 1966 LIPID TESTING 1966 MAMMOGRAM 1966 HIV SCREENING 1981 HEPATITIS C SCREENING 03/16/1984 DTAP/TDAP/TD VACCINES (1 - Tdap) 1985 HEPATITIS B VACCINE (1 of 3 - 19+ 3-dose series) 1985 PAP SMEAR 1987 Cervical Cancer Screening 1996 PAP with HPV 1996 PNEUMOCOCCAL VACCINE 50+ (1 of 1 - PCV) 2016 ZOSTER VACCINE (1 of 2) 2016 DEPRESSION SCREENING 10/28/2024 COVID-19 VACCINE (2024-2 6 season) 2025 INFLUENZA VACCINE (#1) 2025 HIB VACCINE Aged Out No longer eligi ble based on patient's age to complete this topic HPV VACCINE Aged Out No longer eligi ble based on patient's age to complete this topic MENINGOCOCCAL (Group B) VACC INE SHARED DECISION-MAKING Aged Out No longer eligibl e based on patient's age to complete this topic MENINGOCOCCAL GROUPS A/C/Y/W VACCINE Aged Out No longer eligible b ased on patient's age to complete this topic Insurance [facility] Care Teams Licensed Final Expense Agents Relationship Specialty Start Date End Date Zuhair Amado PA [address] [place] [id number] PCP - General 06/14/17
== END 2025-09-29 10:59 | disposition home or self-care (01) ==
PROVIDERS: PCP Physician Assistant; Visit Provider Internal Medicine
DX: M79.672 Pain in left foot (principal)
CPT/HCPCS: 73610; 73630